=== PATIENT | female | born 1970 | race Caucasian/White ===

== ENCOUNTER → 2019-05-15 | Outpatient (CLI) | payer OTHER ==
--- NOTE | 2019-05-15 11:35 | Diagnostic Imaging Report ---
Indication: Routine screening. Comparison is made with prior mammogram from 02/18/2015. 2-D and 3-D bilateral screening mammography was performed with CAD. Bilateral subpectoral breast implants again noted. Implant contours are smooth. Scattered fibroglandular tissue is seen bilaterally. No mass or malignant-appearing microcalcifications are identified. The axillae are unremarkable. IMPRESSION: BI-RADS Category 2 No mammographic features suspicious for malignancy are identified. ACR BI-RADS Category 2: Benign findings. Result letter will be mailed to the patient. Note: At least 10% of breast cancer is not imaged by mammography. Dictated by: Dictated on workstation # [id number]
== END ==
LOC: RAD 09:52
PROVIDERS: ATTEND Obstetrics & Gynecology
DX: Z12.31 Encounter for screening mammogram for malignant neoplasm of breast (principal)
CPT/HCPCS: 77067

== ENCOUNTER 2020-01-09 20:52 | Emergency (ER) | payer OTHER ==
[~2020-01-09] VITALS: Ht 177 cm; Wt 72.0 kg
--- OUTSIDE RECORDS SUMMARY | 2020-01-09 20:58 | XMS REPORT ---
Author Author Mary ISABEL Organization [facility] Address [address] [place] [address] Phone Unavailable Care Team Providers Care Balloon Dipper Name Role Phone RAVEN ISABEL Unavailable Unavailable PROBLEMS Type Condition ICD9-CM Code [id number] Code Onset Dates Condition S tatus SNOMED Code Problem Migraine without status migr ainosus, not intractable, unspecified migraine type G43.909 Active 36831959 Problem Stress F43.9 Active 02539301 Problem Migraines G43.909 Active 39237680 Problem Acute seasonal allergic rhinitis, unspecified trigger J30.2 Active 936736399 Problem Chronic maxillary sinusitis J32.0 Ac tive 82580166 ALLERGIES No Information ENCOUNTERS Encounter Location Date Diagnosis [facility] [address] [address] May, Encounter for immunization Z 23 [place] [id number] [address] Mar, Migraine without status migr ainosus, not intractable, unspecified migraine type G43.909 and Migraines G43.909 [facility] [address] [address] Jan, Migraine without status migr ainosus, not intractable, unspecified migraine type G43.909 [facility] [address] [address] December, Rash R21 [facility] [address] [address] Oct, Migraines G43.909 ; Chronic maxillary sinusitis J32.0 ; Stress F43.9 ; Screening cholesterol level Z13.220 and Screening for diabetes mellitus Z13.1 [place] [address] [place] [address] 19 Oct, 2017 Migraines G43.909 [facility] [address] [address] 07 Sep, 2017 Migraines G43.909 [facility] [address] [place] [id number] [place] [address] 08 Jul, 2017 Viral gastroenteritis A08.4 and Acute seasonal allergic rhinitis, unspecified trigger J30.2 [facility] [address] [address] Mar, Migraines G43.909 [place] [address] [address] Jan, [place] [address] [address] Jan, Migraines G43.909 [facility] [address] [address] 08 Oct, 2016 Migraines G43.909 and Enviro nmental allergies Z91.09 [place] [address] [address] 17 Sep, 2016 Wellness examination Z00.00 [place] [address] [address] 14 Sep, 2016 Lumbago with sciatica, left side M54.42 ; Other chronic pain G89.29 and Chronic maxillary sinusitis J32.0 [place] [address] [address] 30 Jul, 2016 Migraines G43.909 ; Environm ental allergies Z91.09 ; Weight gain R63.5 and Wellness examination Z00.00 [place] [address] [place] [id number] [place] [address] 27 May, 2016 Environmental allergies Z91. 09 [place] [address] [place] [address] May, [facility] [address] [facility] [id number] [address] [place] [address] Mar, Environmental allergies Z91. 09 ; Migraines G43.909 and Weight gain R63.5 [facility] [address] [facility] [id number] [address] [place] [address] Mar, Other headache syndrome G44. 89 [facility] [address] [facility] [id number] [address] [place] [address] Jan, Migraine syndrome G43.909 [place] [address] [place] [id number] [place] [address] Jan, Migraines G43.909 ; Environm ental allergies Z91.09 and Weight gain R63.5 [facility] [address] [address] Jan, [facility] [address] [place] [id number] [place] [address] December, Migraines G43.909 [place] [address] [address] Nov, Migraines G43.909 [facility] [address] [place] [id number] [place] [address] Aug, Migraines G43.909 ; Weight g ain R63.5 and Sinusitis J32.9 [facility] [address] [place] [id number] [address] [place] [address] Jun, [facility] [address] [place] [id number] [place] [address] Jun, Weight gain R63.5 ; Migraine s G43.909 ; Nausea R11.0 and Environmental allergies Z91.09 [facility] [address] [place] [id number] [place] [address] May, [facility] [address] [id number] [address] [place] [address] May, [facility] [address] [id number] [address] [place] [address] Jun, [facility] [address] [id number] [address] [place] [address] Jun, [facility] [address] [id number] [address] [place] [address] Nov, [facility] [address] [id number] [address] [place] [address] Nov, [facility] [address] [id number] [address] [place] [address] May, [facility] [address] [id number] [address] [place] [address] May, [facility] [address] [facility] [id number] [address] [place] [address] Oct, IMMUNIZATIONS Vaccine Route Administration Date Status FLULAVAL QUAD 0.5ML (6 MO & UP) 2017 IM Intramuscular May 07 18 Administered SOCIAL HISTORY Never Assessed REASON FOR VISIT Flu Shot PLAN OF CARE VITAL SIGNS MEDICATIONS Unknown Medications RESULTS No Results PROCEDURES Procedure Date Ordered Result Body Site FLULAVAL QUAD 0.5ML (6 MO AND UP) 2017May 07, 2018 SINGLE IMMUNIZATION ADMIN May 07, 2018 INSTRUCTIONS MEDICATIONS ADMINISTERED No Known Medications MEDICAL (GENERAL) HISTORY Type Description Date Medical History Sinusitis Medical History Migraines Surgical History Surgical History breast augmentation 2009 Surgical History hip surgery as child Hospitalization History Childbirth
--- OUTSIDE RECORDS SUMMARY | 2020-01-09 20:58 | XMS REPORT ---
Author Author Mary BANKS Organization [facility] Address [address] [place] [address] Care Team Providers Care Loader Helper Sorting Yard Name Role Phone ESME BANKS Unavailable PROBLEMS Type Condition ICD9-CM Code SWE20-DJ Code Onset Dates Condition S tatus SNOMED Code Problem Migraine without status migr ainosus, not intractable, unspecified migraine type G43.909 Active 98741492 Problem Stress F43.9 Active 04397714 Problem Migraines G43.909 Active 67571108 Problem Acute seasonal allergic rhinitis, unspecified trigger J30.2 Active 268729919 Problem Chronic maxillary sinusitis J32.0 Ac tive 86530721 ALLERGIES No Information ENCOUNTERS Encounter Location Date Diagnosis [facility] [address] [address] Mar, Migraine without status migr ainosus, not intractable, unspecified migraine type G43.909 and Migraines G43.909 [facility] [address] [address] Jan, Migraine without status migr ainosus, not intractable, unspecified migraine type G43.909 [facility] [address] [place] [id number] [place] [address] December, Rash R21 [facility] [address] [place] [id number] [place] [address] Oct, Migraines G43.909 ; Chronic maxillary sinusitis J32.0 ; Stress F43.9 ; Screening cholesterol level Z13.220 and Screening for diabetes mellitus Z13.1 [facility] [address] [place] [id number] [place] [address] Oct, Migraines G43.909 [facility] [address] [address] 07 Sep, 2017 Migraines G43.909 [facility] [address] [address] 08 Jul, 2017 Viral gastroenteritis A08.4 and Acute seasonal allergic rhinitis, unspecified trigger J30.2 [place] [address] [address] Mar, Migraines G43.909 [place] [address] [address] Jan, [place] [address] [address] Jan, Migraines G43.909 [place] [address] [address] Oct, Migraines G43.909 and Enviro nmental allergies Z91.09 [place] [address] [address] 17 Sep, 2016 Wellness examination Z00.00 [place] [address] [address] 14 Sep, 2016 Lumbago with sciatica, left side M54.42 ; Other chronic pain G89.29 and Chronic maxillary sinusitis J32.0 [place] [address] [address] Jul, Migraines G43.909 ; Environm ental allergies Z91.09 ; Weight gain R63.5 and Wellness examination Z00.00 [place] [address] [address] May, Environmental allergies Z91. 09 [place] [address] [address] May, [place] [address] [address] Mar, Environmental allergies Z91. 09 ; Migraines G43.909 and Weight gain R63.5 [facility] [address] [facility] [id number] [address] [place] [address] Mar, Other headache syndrome G44. 89 [facility] [address] [facility] [id number] [address] [place] [address] Jan, Migraine syndrome G43.909 [facility] [address] [facility] [id number] [address] [place] [address] Jan, Migraines G43.909 ; Environm ental allergies Z91.09 and Weight gain R63.5 [facility] [address] [facility] [id number] [address] [place] [address] Jan, [facility] [address] [place] [id number] [place] [address] December, Migraines G43.909 [facility] [address] [facility] [id number] [address] [place] [address] Nov, Migraines G43.909 [facility] [address] [facility] [id number] [address] [place] [address] Aug, Migraines G43.909 ; Weight g ain R63.5 and Sinusitis J32.9 [place] [address] [place] [id number] [place] [address] Jun, [facility] [address] [place] [id number] [place] [address] Jun, Weight gain R63.5 ; Migraine s G43.909 ; Nausea R11.0 and Environmental allergies Z91.09 [facility] [address] [facility] [id number] [address] [place] [address] May, [facility] [address] [place] [id number] [place] [address] May, [facility] [address] [place] [address] Jun, [facility] [address] [id number] [address] [place] [address] Jun, [facility] [address] [id number] [address] [place] [address] Nov, [facility] [address] [id number] [address] [place] [phone] Nov, [facility] [address] [id number] [address] [place] [address] May, [facility] [address] [facility] [id number] [address] [place] [address] May, [facility] [address] [facility] [id number] [address] [place] [address] Oct, IMMUNIZATIONS Vaccine Route Administration Date Status SOLUMEDROL (UP TO 125 MG) IM Intramuscular December 25, 2017 Admin istered SOCIAL HISTORY Never Assessed REASON FOR VISIT Rash Pt c/o rash on legs which started on Saturday [place] PLAN OF CARE VITAL SIGNS Height 69 in 2017-12-25 Weight 158 lbs 2017-12-25 Temperature 98.1 degrees Fahrenheit 2017-12-25 Heart Rate 80 bpm 2017-12-25 Respiratory Rate 16 2017-12-25 BMI 23.33 kg/m2 2017-12-25 Blood pressure systolic 120 mmHg 2017-12-25 Blood pressure diastolic 78 mmHg 2017-12-25 MEDICATIONS Medication Instructions Dosage Frequency Start Date End Date Duration S tatus HydrOXYzine HCl 25 MG Orally 4 times a day 1 tablet as needed 6h December, Active ZyrTEC 10 mg Orally Once a day 1 tablet 24h Apr, 90 days Unknown Treximet 85-500 MG Orally Once a day TAKE ONE TABLET BY M OUTH ONCE DAILY NEEDED 24h 18 Unknown PredniSONE 20 mg Orally Once a day 2 tablets 24h December, December, 05 days Active Zofran ODT 4 MG Orally every 8 hrs 1 tablet on the tongue and al low to dissolve 8h Jul, 5 days Unknown RESULTS No Results PROCEDURES Procedure Date Ordered Result Body Site SOLUMEDROL (UP TO 125 MG) December 25, 2017 THER/PROPH/DIAG INJ, SC/IM December 25, 2017 INSTRUCTIONS MEDICATIONS ADMINISTERED No Known Medications MEDICAL (GENERAL) HISTORY Type Description Date Medical History Sinusitis Medical History Migraines Surgical History Surgical History breast augmentation 2009 Surgical History hip surgery as child Hospitalization History Childbirth
--- OUTSIDE RECORDS SUMMARY | 2020-01-09 20:58 | XMS REPORT ---
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 [employer] [facility] Rating [facility] Address [address] [address] Care Team Providers Care Door Trimmer Name Role Phone SAL CESARE Unavailable Unavailable RAJCEDRICK MAGGY Unavailable Unavailable CESAR, SIGRID Unavailable CESAR, SIGRID Unavailable CESAR, SIGRID Unavailable CESAR, SIGRID Unavailable JUMA MUNOZ Unavailable ESME BANKS Unavailable KELSEY POWERS Unavailable BON DE LEON Unavailable ESME BANKS Unavailable JUMA MUNOZ Unavailable MANDY DE LEONELE Unavailable RAVEN ISABEL Unavailable Unavailable BON Cheng Unavailable Unavailable Migration, Doctor Unavailable Unavailable ESME BANKS DIETETIC AIDE Unavailable Unavailable PCP, TRANSITION Unavailable Unavailable RENÉ WHITTEN, GERHARD Dickerson Unavailable Unavailable Unavailable Unavailable Unavailable Unavailable Unavailable Unavailable Unavailable Unavailable Allergies The data below is from unstructured sourcesNo Known Allergies No Known Allergies No Known Allergies No Known Allergies No Known Allergies No Known Allergies No Known Allergies No Known Allergies No Known Allergies No Known Allergies No Known Allergies Unknown Allergies Unknown Allergies No Information No Information No Information No Information No Information No Information No Information No Information No Information No Information No Information No Information Medications Medication Ingredient Drug Dose Dates Status Sig Sig Care Class(es) (Normalized) (Original) Provid er hydrOXYzine hydrOXYzine Antihistami 25 mg 12-26-19 Active no HydrOXYzine no hydrochlori Translation ne 18 information HCl 25 MG name de 25 mg s: [ Orally 4 oral tablet HydrOXYzine times a day (2 HCl 25 MG] 1 tablet as sources.) needed 6h December, Active Problems Active Problems Problem Normalized Date Last Normalized Normalized Provider Fa cility Classification Problem(s) Recorded Problem Problem Sta tus Duration Immunizations Encounter for Episodic Active RAVEN ISABEL Community and screening immunization [address] [facility] for infectious Translations: of [place] disease (2 [ - Encounter [place] ([address]) sources.) for immunization Z23] Other nervous Other chronic Chronic Active [facility] [facility] disorders (5 Translations: of [place] sources.) [ - Other [place] ([address]71) chronic pain G89.29, - Other chronic pain G89.29] Other upper Seasonal Chronic Active ESME BANKS Communit y respiratory allergic [address] [facility] disease (5 rhinitis of [place] sources.) Translations: [place] ([address]791) [ Acute seasonal allergic rhinitis, unspecified trigger, Acute seasonal allergic rhinitis, unspecified trigger] Viral Viral wart, Episodic Active Doctor Community infection (1 unspecified [facility] source.) Translations: of [place] [ - Viral [place] ([address]954) warts, unspecified type B07.9] Past or Other Problems Problem Normalized Date Last Normalized Normalized Provider Fa cility Classification Problem(s) Recorded Problem Problem Sta tus Duration Other upper Acute Episodic Completed Doctor Community respiratory recurrent [facility] infections (6 maxillary of [place] sources.) sinusitis [place] ([address]18) Translations: [ - Acute recurrent maxillary sinusitis J01.01, - Acute recurrent ethmoidal sinusitis J01.21, - Acute sinusitis J01.90] Procedures Procedure Normalized Procedure Procedure Result Performer Facility Date 01-04-2018 Ketorolac tromethamine no information no name [facility] inj [facility] (79221) 12-25-2017 Methylprednisolone no information no name [facility] injection [facility] (64540) 01-04-2018 Therapeutic no information no name [facility] ealth prophylactic/dx Center [facility] injection subq/im [place] (21755) 12-25-2017 Therapeutic no information no name [facility] ealt prophylactic/dx [facility] injection subq/im [place] (61472) Immunizations Normalized Immunization Date Notes Care Provider Facili ty Immunization influenza, 05-07-2018 no information RAVEN ISABEL [address] [facility] injectable, [facility] quadrivalent, [place] (60555) preservative free influenza, 05-24-2017 no information no name Not Availab le injectable, (00481) quadrivalent, preservative free influenza, seasonal, 05-27-2019 no information no name [facility] injectable [facility] (09957) influenza, seasonal, 05-07-2018 - no information RAVEN ISABEL [address]24[address] [facility] injectable 05-07-2018 [facility] Translations: [ [place] (24934) SINGLE IMMUNIZATION ADMIN] SOLUMEDROL (UP TO 12-25-2017 no information ESME BANKS [address] [facility] 125 MG) [facility] (47210) SOLUMEDROL (UP TO 12-25-2017 no information no name [facility] MG) [facility] ([address]886) TORADOL (IM) 60 01-04-2018 no information JUMA MUNOZ [facility] MG/2ML (UP TO 15 MG) [address] [facility] (92385) Results Test Name Value Interpretation Reference Range Date Time Fa cility (Normalized) (Normalized) (Medline Reference) other on 2016-09-22 Albumin/Globulin 2.0 {ratio} (no code) 1 - 2.5 {ratio} 7 Not Available [Mass ratio] 09:33-0500 (90918) Cholesterol in 14 mg/dL (no code) 09-22-2016 Not Availab le VLDL [Mass/Vol] 09:33-0500 (71530) Erythrocyte 13.2 % (no code) 11.6 - 14.6 % 09-22-2016 Not Av ailable distribution 08:290500 (14104) width (RBC) [Ratio] Globulin (S) 2.0 g/dL (no code) 2 - 3.5 g/dL 09-22-2016 Not Av ailable [Mass/Vol] 09:33-0500 (32091) Immature 0.0 10*3/uL (no code) 0 - 0.2 10*3/uL 09-22-2016 Not Available granulocytes 08:290500 (98948) (Bld) [#/Vol] Immature 0 % (no code) 0 - 0.5 % 09-22-2016 Not Availabl e granulocytes/100 08: (54972) WBC (Bld) MCHC (RBC) 33.1 g/dL (no code) 32 - 36 g/dL 09-22-2016 Not Avai lable [Mass/Vol] 08: (02818) metabolic panel on 2016-09-22 Albumin 4.0 g/dL (no code) 3.4 - 5.4 g/dL 09-22-2016 Not Pascale ilable [Mass/Vol] 09: (11512) ALP [Catalytic 39 U/L (no code) 44 - 147 U/L 09-22-2016 Not Available activity/Vol] 09: (11576) ALT [Catalytic 37 U/L (H) 4 - 40 U/L 09-22-2016 Not Av ailable activity/Vol] 09: (52759) AST [Catalytic 25 U/L (no code) 10 - 34 U/L 09-22-2016 Not A vailable activity/Vol] 09: (25460) Bilirubin 0.5 mg/dL (no code) 0.1 - 1.2 mg/dL 09-22-2016 Not Av ailable [Mass/Vol] 09: (23911) Calcium 9.2 mg/dL (no code) 8.5 - 10.2 mg/dL 09-22-2016 Not A vailable [Mass/Vol] 09: (85892) Chloride 104 mmol/L (no code) 95 - 106 mmol/L 09-22-2016 Not A vailable [Moles/Vol] 09: (97592) CO2 [Moles/Vol] 24 mmol/L (no code) 23 - 29 mmol/L 09-22-2016 N ot Available 09: (99245) Creatinine 0.83 mg/dL (no code) 09-22-2016 Not Available [Mass/Vol] 09: (95633) GFR/1.73 sq M 98 (no code) 90 - 120 09-22-2016 Not Avai lable predicted among mL/min/{1.73_m2} mL/min/{1.73_m2} 09:33-0500 (46586) blacks MDRD (S/P/Bld) [Vol rate/Area] GFR/1.73 sq M 85 (no code) 90 - 120 09-22-2016 Not Avai lable predicted among mL/min/{1.73_m2} mL/min/{1.73_m2} 09:330500 (76899) non-blacks MDRD (S/P/Bld) [Vol rate/Area] Glucose 81 mg/dL (no code) 60 - 125 mg/dL 09-22-2016 Not Pascale ilable [Mass/Vol] 09:330500 (14388) Potassium 4.4 mmol/L (no code) 3.7 - 5.2 mmol/L 09-22-2016 Not Available [Moles/Vol] 09:330500 (93618) Protein 6.0 g/dL (no code) 6.4 - 8.3 g/dL 09-22-2016 Not Pascale ilable [Mass/Vol] 09:330500 (08580) Sodium 140 mmol/L (no code) 135 - 145 mmol/L 09-22-2016 Not Available [Moles/Vol] 09:330500 (59882) Urea nitrogen 10 mg/dL (no code) 7 - 20 mg/dL 09-22-2016 Not A vailable [Mass/Vol] 09:330500 (83552) Urea 12 mg/mg (no code) 6 - 22 mg/mg 09-22-2016 Not Avail able nitrogen/Creatin 09:330500 (53752) ine [Mass ratio] hematology on 2016-09-22 Basophils (Bld) 0.0 10*3/uL (no code) 0 - 0.3 10*3/uL 09-22-2016 Not Available [#/Vol] 08:290500 (48731) Basophils/100 1 % (no code) 0.5 - 1 % 09-22-2016 Not Avai lable WBC (Bld) 08:0500 (54136) Eosinophils 0.0 10*3/uL (no code) 0.05 - 0.5 09-22-2016 Not Pascale ilable (Bld) [#/Vol] 10*3/uL 08:0500 (15229) Eosinophils/100 1 % (no code) 1 - 4 % 09-22-2016 Not Av ailable WBC (Bld) 08: (95370) Hematocrit (Bld) 39.3 % (no code) 36.1 - 50.3 % 09-22-2016 N ot Available [Volume 08: (45276) fraction] Hemoglobin (Bld) 13.0 g/dL (no code) 12.1 - 17.2 g/dL 09-22-2016 Not Available [Mass/Vol] 08: (70547) Lymphocytes 1.1 10*3/uL (no code) 0.9 - 2.9 09-22-2016 Not Avai lable (Bld) [#/Vol] 10*3/uL 08: (14787) Lymphocytes/100 26 % (no code) 20 - 40 % 09-22-2016 Not Av ailable WBC (Bld) 08: (04055) MCH (RBC) 32.8 pg (no code) 27 - 31 pg 09-22-2016 Not Availab le [Entitic mass] 08: (26118) MCV (RBC) 99 fL (H) 80 - 100 fL 09-22-2016 Not Availa ble [Entitic vol] 08: (41830) Monocytes (Bld) 0.4 10*3/uL (no code) 0.3 - 0.9 09-22-2016 Not Available [#/Vol] 10*3/uL 08: (49476) Monocytes/100 9 % (no code) 2 - 8 % 09-22-2016 Not Avai lable WBC (Bld) 08: (67425) Neutrophils 2.8 10*3/uL (no code) 1.7 - 7 10*3/uL 09-22-2016 No t Available (Bld) [#/Vol] 08:0500 (75347) Neutrophils/100 63 % (no code) 40 - 60 % 09-22-2016 Not Av ailable WBC (Bld) 08:0500 (22283) Platelets (Bld) 217 10*3/uL (no code) 150 - 450 09-22-2016 Not Available [#/Vol] 10*3/uL 08: (07525) RBC (Bld) 3.96 10*6/uL (no code) 4.2 - 6.1 09-22-2016 Not Avail able [#/Vol] 10*6/uL 08: (82361) WBC (Bld) 4.4 10*3/uL (no code) 3.5 - 10.5 09-22-2016 Not Avail able [#/Vol] 10*3/uL 08: (43796) cardiac on 2016-09-22 Cholesterol 186 mg/dL (no code) 180 - 200 mg/dL 09-22-2016 Not Available [Mass/Vol] 09:330500 (02725) Cholesterol in 82 mg/dL (no code) 09-22-2016 Not Availab le HDL [Mass/Vol] 09:330500 (62946) Cholesterol in 90 mg/dL (no code) 0 - 100 mg/dL 09-22-2016 Not Available LDL [Mass/Vol] 09:330500 (33090) Triglyceride 70 mg/dL (no code) 0 - 150 mg/dL 09-22-2016 Not A vailable [Mass/Vol] 09:330500 (42420) Vital Signs Vital Sign Value Interpretation Reference Date Time Care Prov ider Facility (Normalized) (Normalized) Range BMI (Body Mass 23.06 kg/m2 (no code) 15 - 25 kg/m2 01-04-2018 ANIKET CONLEY Community Index) 11:30-0400 [facility] [address] [facility] (42002) BMI (Body Mass 23.33 kg/m2 (no code) 15 - 25 kg/m2 12-25-2017 Devon BANKS Community Index) 19:00-[address] [place] [address] (68948) Body 97.3 [degF] (no code) 97.8 - 99.0 01-04-2018 JUMA Community Temperature [degF] 11:30-0400 [facility] [address] [facility] (20745) Body 98.1 [degF] (no code) 97.8 - 99.0 12-25-2017 ESME ALSTON Community Temperature [degF] 19:00-[address] [place] [address] (76983) Height 175.26 cm (no code) cm 01-04-2018 JUMA Yo nity 11:30-0400 [place] [phone] [facility] (96[address]) Height 175.26 cm (no code) cm 12-25-2017 [facility] 19:000400 [address] [place] [address] (25950) Weight 70.85 kg (no code) kg 01-04-2018 JUMA Garcia ity 11:30-0400 [place] [phone] [facility] (44407) Weight 71.67 kg (no code) kg 12-25-2017 ESME BANKS Co mmunity 19:000400 [address] [place] [address] (30998) Interventions No Information Plan of Treatment The data below is from unstructured sources Activity Details Follow Up 3 Months Reason:migraines Activity Details Follow Up 2 Weeks, prn Reason: Activity Details Follow Up prn Reason: Activity Details Follow Up prn, 3 Months Reason: Goals No Information Social History No Information Functional Status No Information Mental Status No Information Encounters Encounter Normalized Encounter Encounter Diagnosis Care Provi mayo Organization Date Type 05-07-2018 (outreach) Outreach Encounter for RAVEN BHARTIMARQUISBhupinder (n o [facility] Visit immunization phone) MARIA DEL CARMENPERNELL (no phone) Gabriele (no phone) [facility] Migraine, unspecified, CARLIN JEFF (no [facility] not intractable, phone) CARE (no phon e) without status migrainosus 12-14-2018 [facility] Acute recurrent KELSEY BURNS ( no [facility] ethmoidal sinusitis phone) CARE (no p sahunna) 08-10-2018 [facility] Acute sinusitis, KELSEY BURNS (no [facility] unspecified phone) CARE (no phone) 03-30-2019 [facility] Viral wartKELSEY (no [facility] unspecified phone) (no phone) 02-16-2019 [facility] Acute recurrent ESME BANKS (no [facility] maxillary sinusitis phone) (no phone) 01-04-2018 Patient encounter no information no name no or ganization name 12-25-2017 Patient encounter no information no name no or ganization name 11-01-2017 Patient encounter no information no name no or ganization name 10-21-2017 Patient encounter no information no name no or ganization name 02-18-2015 Patient encounter no information no name no or ganization name Patient encounter no information no name no organizat ion name 05-15-2019 Patient encounter no information no name no or ganization name procedure 05-15-2019 Patient encounter no information no name no or ganization name procedure 04-24-2019 Patient encounter no information no name no or ganization name procedure 04-24-2019 Patient encounter no information no name no or ganization name procedure 04-12-2019 Patient encounter no information no name no or ganization name procedure 02-16-2019 Patient encounter no information no name no or ganization name procedure 12-14-2018 Patient encounter no information no name no or ganization name procedure 08-10-2018 Patient encounter no information no name no or ganization name procedure 04-03-2019 Telephone encounter no information KELSEY BURNS (n o [facility] phone) (no phone) 02-23-2019 Telephone encounter Acute recurrent ESME BANKS (n o [facility] maxillary sinusitis phone) (no phone) 03-13-2018 Telephone encounter Migraine, unspecified, BON DE LEON (no [facility] not intractable, phone) BON zzCAREY (no phone) without status (no phone) BON migrainosus zzCAREY (no phone) no information Encounter for general no name no organ ization name adult medical examination without abnormal findings Medical Equipment No Information Payers No Information Summary Purpose eClinicalWorks SubmissioneClinicalWorks SubmissioneClinicalWorks SubmissioneClinicalWorks SubmissioneClinicalWorks SubmissioneClinicalWorks SubmissioneClinicalWorks Submission Additional Source Comments This clinical document has been generated using [employer] software that has been certified by the Office of the National Coordinator for Health Information Technology (ONC 15.99.04.3023.Diam.31.00.0.431262) and the National Committee for Environmental Health Nurse (NCQA, as an eMeasure certified technology). FOR RECORDS PERTAINING TO PATIENTS WHO ARE OR HAVE BEEN ENROLLED IN A CHEMICAL D EPENDENCY/SUBSTANCE ABUSE PROGRAM, SOME INFORMATION MAY BE OMITTED. This clinica l summary was aggregated from multiple sources. Caution should be exercised in using it in the provision of clinical care. This summary normalizes information from multiple sources, and as a consequence, information in this document may ma terially change the coding, format and clinical context of patient data. In viola tion, data may be omitted in some cases. CLINICAL DECISIONS SHOULD BE BASED ON T HE PRIMARY CLINICAL RECORDS. [employer]. provides no warranty or guara ntee of the accuracy or completeness of information in this document.The followi ng information is based on time limited clinical information UNRECOGNIZED CONTENT PROVIDED BELOW FOR UNRECOGNIZED SECTION MEDICAL (GENERAL) HISTORY Type Description Date Medical History Sinusitis Medical History Migraines Surgical History Surgical History breast augmentation 2009 Surgical History hip surgery as child Hospitalization History Childbirth UNRECOGNIZED CONTENT PROVIDED BELOW FOR UNRECOGNIZED SECTION REASON FOR VISIT Refill requestFlu Shot
--- OUTSIDE RECORDS SUMMARY | 2020-01-09 20:58 | XMS REPORT ---
Author Author Mary MUNOZ [facility] Address [address] [place] [address] Care Team Providers Care Surgical Garment Assembly Supervisor Name Role Phone TAMMY JUMA Unavailable PROBLEMS Type Condition ICD9-CM Code YRQ09-SF Code Onset Dates Condition S tatus SNOMED Code Problem Migraine without status migr ainosus, not intractable, unspecified migraine type G43.909 Active 66260425 Problem Stress F43.9 Active 31885737 Problem Migraines G43.909 Active 09364528 Problem Acute seasonal allergic rhinitis, unspecified trigger J30.2 Active 568594194 Problem Chronic maxillary sinusitis J32.0 Ac tive 01245771 ALLERGIES Substance Reaction Event Type Date Status Penicillamine Unknown Drug Allergy Jan, Active ENCOUNTERS Encounter Location Date Diagnosis [facility] [address] [address] Mar, Migraine without status migr ainosus, not intractable, unspecified migraine type G43.909 and Migraines G43.909 [facility] [address] [address] Jan, Migraine without status migr ainosus, not intractable, unspecified migraine type G43.909 [facility] [address] [place] [id number] [address] [place] [phone] December, Rash R21 [facility] [address] [address] Oct, Migraines G43.909 ; Chronic maxillary sinusitis J32.0 ; Stress F43.9 ; Screening cholesterol level Z13.220 and Screening for diabetes mellitus Z13.1 [facility] [address] [address] Oct, Migraines G43.909 [facility] [address] [address] 07 Sep, 2017 Migraines G43.909 [facility] [address] [address] 08 Jul, 2017 Viral gastroenteritis A08.4 and Acute seasonal allergic rhinitis, unspecified trigger J30.2 [place] [address] [address] Mar, Migraines G43.909 [place] [address] [address] Jan, [place] [address] [address] Jan, Migraines G43.909 [place] [address] [address] Oct, Migraines G43.909 and Enviro nmental allergies Z91.09 [place] [address] [address] 17 Sep, 2016 Wellness examination Z00.00 [place] [address] [address] 14 Sep, 2016 Lumbago with sciatica, left side M54.42 ; Other chronic pain G89.29 and Chronic maxillary sinusitis J32.0 [place] [address] [address] Jul, Migraines G43.909 ; Environm ental allergies Z91.09 ; Weight gain R63.5 and Wellness examination Z00.00 [place] [address] [address] May, Environmental allergies Z91. 09 [place] [address] [address] May, [facility] [address] [id number] [address] [place] [phone] Mar, Environmental allergies Z91. 09 ; Migraines G43.909 and Weight gain R63.5 [facility] [address] [id number] [address] [place] [phone] Mar, Other headache syndrome G44. 89 [facility] [address] [facility] [id number] [address] [place] [address] Jan, Migraine syndrome G43.909 [facility] [address] [facility] [id number] [address] [place] [address] Jan, Migraines G43.909 ; Environm ental allergies Z91.09 and Weight gain R63.5 [facility] [address] [facility] [id number] [address] [place] [address] Jan, [facility] [address] [facility] [id number] [address] [place] [phone] December, Migraines G43.909 [facility] [address] [facility] [id number] [address] [place] [address] Nov, Migraines G43.909 [facility] [address] [facility] [id number] [address] [place] [address] Aug, Migraines G43.909 ; Weight g ain R63.5 and Sinusitis J32.9 [facility] [address] [facility] [id number] [address] [place] [phone] Jun, [facility] [address] [facility] [id number] [address] [place] [phone] Jun, Weight gain R63.5 ; Migraine s G43.909 ; Nausea R11.0 and Environmental allergies Z91.09 [facility] [address] [facility] [id number] [address] [place] [phone] May, [facility] [address] [facility] [id number] [address] [place] [phone] May, [facility] [address] [facility] [id number] [address] [place] [phone] Jun, [facility] [address] [id number] [address] [place] [phone] Jun, [facility] [address] [facility] [id number] [address] [place] [phone] Nov, [facility] [address] [id number] [address] [place] [phone] Nov, [facility] [address] [facility] [id number] [address] [place] [phone] May, [facility] [address] [facility] [id number] [address] [place] [phone] May, [facility] [address] [facility] [id number] [address] [place] [phone] Oct, IMMUNIZATIONS Vaccine Route Administration Date Status TORADOL (IM) 60 MG/2ML (UP TO 15 MG) IM Intramuscular January 04 018 Administered SOCIAL HISTORY Never Assessed REASON FOR VISIT Migraine started yesterday JStrasserRN PLAN OF CARE Activity Details Follow Up prn Reason: VITAL SIGNS Height 69 in 2018-01-04 Weight 156.2 lbs 2018-01-04 Temperature 97.3 degrees Fahrenheit 2018-01-04 Heart Rate 60 bpm 2018-01-04 Respiratory Rate 18 2018-01-04 BMI 23.06 kg/m2 2018-01-04 Blood pressure systolic 110 mmHg 2018-01-04 Blood pressure diastolic 70 mmHg 2018-01-04 MEDICATIONS Medication Instructions Dosage Frequency Start Date End Date Duration S tatus Treximet 85-500 MG Orally Once a day TAKE ONE TABLET BY M OUTH ONCE DAILY NEEDED 24h 18 Active Zofran ODT 4 MG Orally every 8 hrs 1 tablet on the tongue and al low to dissolve 8h Jul, 10 days Active ZyrTEC 10 mg Orally Once a day 1 tablet 24h 26 Apr, 2018 90 days Not-Taking HydrOXYzine HCl 25 MG Orally 4 times a day 1 tablet as needed 6h December, Active RESULTS No Results PROCEDURES Procedure Date Ordered Result Body Site TORADOL (IM) 60 MG/2ML (UP TO 15 MG) January 04, 2018 THER/PROPH/DIAG INJ, SC/IM January 04, 2018 INSTRUCTIONS MEDICATIONS ADMINISTERED No Known Medications MEDICAL (GENERAL) HISTORY Type Description Date Medical History Sinusitis Medical History Migraines Surgical History Surgical History breast augmentation 2009 Surgical History hip surgery as child Hospitalization History Childbirth
--- OUTSIDE RECORDS SUMMARY | 2020-01-09 20:58 | XMS REPORT ---
Author Author Mary Boone Doctor Organization [facility] Address Unknown Phone Unavailable Care Team Providers Care Metal Bumper Name Role Phone Migration, Doctor Unavailable Unavailable PROBLEMS Type Condition ICD9-CM Code [id number] Code Onset Dates Condition S tatus SNOMED Code Problem Stress F43.9 Active 27313345 Problem Migraine without status migr ainosus, not intractable, unspecified migraine type G43.909 Active 81903867 Problem Migraines G43.909 Active 06121795 Problem Chronic maxillary sinusitis J32.0 Ac tive 50597063 Problem Acute seasonal allergic rhinitis, unspecified trigger J30.2 Active 516882646 ALLERGIES No Information ENCOUNTERS Encounter Location Date Diagnosis [facility] WALK IN [facility] [address] [place] [id number] [address] [place] [address] Apr, Migraine without status migr ainosus, not intractable, unspecified migraine type G43.909 [facility] [address] [place] [address] [id number] [address] [place] [address] Mar, [facility] [address] [place] [id number] [address] [place] [address] Mar, Viral warts, unspecified typ e B07.9 and Migraine without status migrainosus, not intractable, unspecified migraine type G43.909 [facility] [address] [place] [id number] [address] [place] [address] Feb, Acute recurrent maxillary si nusitis J01.01 [facility] [address] [facility] [id number] [address] [place] [address] Feb, [facility] [address] [place] [id number] [address] [place] [address] Feb, Acute recurrent maxillary si nusitis J01.01 [facility] IN [facility] [address] [place] [place] [id number] [address] [place] [address] December, Acute recurrent ethmoidal si nusitis J01.21 and Migraines G43.909 [facility] [address] [address] Aug, Acute sinusitis J01.90 and M igraine G43.909 [place] [address] [address] May, Encounter for immunization Z 23 [place] [address] [address] Mar, Migraine without status migr ainosus, not intractable, unspecified migraine type G43.909 and Migraines G43.909 [facility] [place] [address] [address] Jan, Migraine without status migr ainosus, not intractable, unspecified migraine type G43.[address] [facility] WALK IN [place] [address] [address] December, Rash R21 [place] [address] [address] Oct, Migraines G43.909 ; Chronic maxillary sinusitis J32.0 ; Stress F43.9 ; Screening cholesterol level Z13.220 and Screening for diabetes mellitus Z13.1 [place] [address] [address] Oct, Migraines G43.909 [facility] [address] [address] Sep, Migraines G43.909 [facility] W[facility] IN [address] [address] Jul, Viral gastroenteritis A08.4 and Acute seasonal allergic rhinitis, unspecified trigger J30.2 [place] [address] [address] Mar, Migraines G43.909 [facility] [address] [facility] [id number] [address] [place] [address] Jan, [facility] [address] [facility] [id number] [address] [place] [address] Jan, Migraines G43.909 [place] [address] [facility] [id number] [address] [place] [address] Oct, Migraines G43.909 and Enviro nmental allergies Z91.09 [facility] [address] [facility] [id number] [address] [place] [address] 17 Sep, 2016 Wellness examination Z00.00 [place] [address] [place] [id number] [place] [address] 14 Sep, 2016 Lumbago with sciatica, left side M54.42 ; Other chronic pain G89.29 and Chronic maxillary sinusitis J32.0 [place] [address] [place] [id number] [place] [address] Jul, Migraines G43.909 ; Environm ental allergies Z91.09 ; Weight gain R63.5 and Wellness examination Z00.00 [place] [address] [place] [id number] [place] [address] May, Environmental allergies Z91. 09 [place] [address] [place] [id number] [place] [address] May, [facility] [address] [place] [id number] [place] [address] Mar, Environmental allergies Z91. 09 ; Migraines G43.909 and Weight gain R63.5 [facility] [address] [facility] [id number] [address] [place] [address] Mar, Other headache syndrome G44. 89 [facility] [address] [facility] [id number] [address] [place] [address] Jan, Migraine syndrome G43.909 [facility] [address] [facility] [id number] [address] [place] [address] 13 Jan, 2016 Migraines G43.909 ; Environm ental allergies Z91.09 and Weight gain R63.5 [facility] [address] [facility] [id number] [address] [place] [address] 08 Jan, 2016 [facility] [address] [facility] [id number] [address] [place] [address] December, Migraines G43.909 [facility] [address] [facility] [id number] [address] [place] [address] Nov, Migraines G43.909 [facility] [address] [facility] [id number] [address] [place] [address] Aug, Migraines G43.909 ; Weight g ain R63.5 and Sinusitis J32.9 [facility] [address] [facility] [id number] [address] [place] [address] Jun, [facility] [address] [facility] [id number] [address] [place] [address] Jun, Weight gain R63.5 ; Migraine s G43.909 ; Nausea R11.0 and Environmental allergies Z91.09 [facility] [address] [facility] [id number] [address] [place] [address] May, [facility] [address] [facility] [id number] [address] [place] [address] May, [facility] [address] [facility] [id number] [address] [place] [address] Jun, [facility] [address] [place] [id number] [address] [place] [address] Jun, [facility] [address] [facility] [id number] [address] [place] [address] 15 Nov, 2013 [facility] [address] [place] [id number] [address] [place] [address] Nov, [facility] [address] [facility] [id number] [address] [place] [address] May, [facility] [address] [facility] [id number] [address] [place] [address] May, [facility] [address] [facility] [id number] [address] [place] [address] Oct, IMMUNIZATIONS No Known Immunizations SOCIAL HISTORY Never Assessed REASON FOR VISIT PLAN OF CARE VITAL SIGNS MEDICATIONS Unknown Medications RESULTS No Results PROCEDURES No Known procedures INSTRUCTIONS MEDICATIONS ADMINISTERED No Known Medications MEDICAL (GENERAL) HISTORY Type Description Date Medical History Sinusitis Medical History Migraines Surgical History Surgical History breast augmentation 2009 Surgical History hip surgery as child Hospitalization History Childbirth
--- OUTSIDE RECORDS SUMMARY | 2020-01-09 20:58 | XMS REPORT ---
Author Author Mary DE LEON Organization [facility] Address [address] [place] [address] Care Team Providers Care Guardian Family Member Name Role Phone DE LEONBON Mueller Unavailable PROBLEMS Type Condition ICD9-CM Code [id number] Code Onset Dates Condition S tatus SNOMED Code Problem Migraine without status migr ainosus, not intractable, unspecified migraine type G43.909 Active 29161288 Problem Stress F43.9 Active 77543040 Problem Migraines G43.909 Active 87396855 Problem Acute seasonal allergic rhinitis, unspecified trigger J30.2 Active 197019682 Problem Chronic maxillary sinusitis J32.0 Ac tive 85371400 ALLERGIES No Information ENCOUNTERS Encounter Location Date Diagnosis [facility] [address] [address] Mar, Migraine without status migr ainosus, not intractable, unspecified migraine type G43.909 and Migraines G43.909 [facility] [address] [address] Jan, Migraine without status migr ainosus, not intractable, unspecified migraine type G43.909 [facility] [address] [place] [address] [id number] [address] [place] [address] December, Rash R21 [facility] [address] [place] [id number] [address] [place] [address] Oct, Migraines G43.909 ; Chronic maxillary sinusitis J32.0 ; Stress F43.9 ; Screening cholesterol level Z13.220 and Screening for diabetes mellitus Z13.1 [facility] [address] [place] [id number] [address] [place] [address] Oct, Migraines G43.909 [facility] [address] [place] [address] 07 Sep, 2017 Migraines G43.909 [facility] WALK IN [facility] [address] [address] 08 Jul, 2017 Viral gastroenteritis A08.4 and Acute seasonal allergic rhinitis, unspecified trigger J30.2 [place] [address] [address] Mar, Migraines G43.909 [facility] [address] [address] Jan, [place] [address] [address] Jan, Migraines G43.909 [place] [address] [address] Oct, Migraines G43.909 and Enviro nmental allergies Z91.09 [place] [address] [address] 17 Sep, 2016 Wellness examination Z00.00 [place] [address] [address] 14 Sep, 2016 Lumbago with sciatica, left side M54.42 ; Other chronic pain G89.29 and Chronic maxillary sinusitis J32.0 [place] [address] [address] Jul, Migraines G43.909 ; Environm ental allergies Z91.09 ; Weight gain R63.5 and Wellness examination Z00.00 [place] [address] [address] 27 May, 2016 Environmental allergies Z91. 09 [place] [address] [address] May, [place] [address] [place] [address] Mar, Environmental allergies Z91. 09 ; Migraines G43.909 and Weight gain R63.5 [facility] [address] [place] [id number] [address] [place] [address] Mar, Other headache syndrome G44. 89 [facility] [address] [place] [id number] [address] [place] [address] Jan, Migraine syndrome G43.909 [facility] [address] [place] [id number] [place] [address] Jan, Migraines G43.909 ; Environm ental allergies Z91.09 and Weight gain R63.5 [facility] [address] [address] Jan, [facility] [address] [address] December, Migraines G43.909 [facility] [address] [address] Nov, Migraines G43.909 [facility] [address] [address] Aug, Migraines G43.909 ; Weight g ain R63.5 and Sinusitis J32.9 [place] [address] [address] Jun, [facility] [address] [address] Jun, Weight gain R63.5 ; Migraine s G43.909 ; Nausea R11.0 and Environmental allergies Z91.09 [facility] [address] [place] [id number] [address] [place] [address] May, [facility] [address] [address] May, [facility] [address] [id number] [address] [place] [address] Jun, [facility] [address] [id number] [address] [place] [address] Jun, [facility] [address] [id number] [address] [place] [address] Nov, [facility] [address] [facility] [id number] [address] [place] [address] Nov, [facility] [address] [id number] [address] [place] [address] May, [facility] [address] [facility] [id number] [address] [place] [address] May, [facility] [address] [facility] [id number] [address] [place] [address] Oct, IMMUNIZATIONS No Known Immunizations SOCIAL HISTORY Never Assessed REASON FOR VISIT Refill request PLAN OF CARE VITAL SIGNS MEDICATIONS Medication Instructions Dosage Frequency Start Date End Date Duration S tatus Zofran 4 MG Orally, PRN 3 times a day 2 tablets 8h Jun, Active RESULTS No Results PROCEDURES No Known procedures INSTRUCTIONS MEDICATIONS ADMINISTERED No Known Medications MEDICAL (GENERAL) HISTORY Type Description Date Medical History Sinusitis Medical History Migraines Surgical History Surgical History breast augmentation 2009 Surgical History hip surgery as child Hospitalization History Childbirth
--- OUTSIDE RECORDS SUMMARY | 2020-01-09 20:59 | XMS REPORT ---
Author Author Mary CESAR [facility] Address [address] [place] [address] Care Team Providers Care Patcher Bowling Ball Name Role Phone CESAR SIGRID Unavailable PROBLEMS Type Condition ICD9-CM Code IHR99-KS Code Onset Dates Condition S tatus SNOMED Code Problem Nausea R11.0 Active 951923959 Problem Migraines G43.909 Active 82867389 Problem Environmental allergies Z91.09 Active 249687032 Problem Chronic maxillary sinusitis J32.0 Ac tive 46842362 Problem Lumbago with sciatica, left side M54.42 Active 456311868 Problem Sinusitis J32.9 Active 38485881 Problem Weight gain R63.5 Active 0172991 Problem Other chronic pain G89.29 Active 8 1879579 Problem Wellness examination Z00.00 Active 192538961 ALLERGIES No Information SOCIAL HISTORY Never Assessed PLAN OF CARE VITAL SIGNS MEDICATIONS Unknown Medications RESULTS Name Result Date Reference Range CBC 2016-09-21 WBC 4.4 3.4-10.8 RBC 3.96 3.77-5.28 Hemoglobin 13.0 11.1-15.9 Hematocrit 39.3 34.0-46.6 MCV 99 79-97 MCH 32.8 26.6-33.0 MCHC 33.1 31.5-35.7 RDW 13.2 12.3-15.4 Platelets 217 150-379 Neutrophils 63 Lymphs 26 Monocytes 9 Eos 1 Basos 1 Neutrophils (Absolute) 2.8 1.4-7.0 Lymphs (Absolute) 1.1 0.7-3.1 Monocytes(Absolute) 0.4 0.1-0.9 Eos (Absolute) 0.0 0.0-0.4 Baso (Absolute) 0.0 0.0-0.2 Immature Granulocytes 0 Immature Grans (Abs) 0.0 0.0-0.1 LIPID PANEL 2016-09-21 Cholesterol, Total 186 100-199 Triglycerides 70 0-149 HDL Cholesterol 82 >39 VLDL Cholesterol Arun 14 5-40 LDL Cholesterol Calc 90 0-99 Comment: CMP 2016-09-21 Glucose, Serum 81 65-99 BUN 10 6-24 Creatinine, Serum 0.83 0.57-1.00 eGFR If NonAfricn Am 85 >59 eGFR If Africn Am 98 >59 BUN/Creatinine Ratio 12 9-23 Sodium, Serum 140 134-144 Potassium, Serum 4.4 3.5-5.2 Chloride, Serum 104 96-106 Carbon Dioxide, Total 24 18-29 Calcium, Serum 9.2 8.7-10.2 Protein, Total, Serum 6.0 6.0-8.5 Albumin, Serum 4.0 3.5-5.5 Globulin, Total 2.0 1.5-4.5 A/G Ratio 2.0 1.1-2.5 Bilirubin, Total 0.5 0.0-1.2 Alkaline Phosphatase, S 39 39-117 AST (SGOT) 25 0-40 ALT (SGPT) 37 0-32 PROCEDURES Procedure Date Ordered Result Body Site COMPLETE CBC W/AUTO DIFF WBC Sep 21, 2016 LIPID PANEL Sep 21, 2016 VENIPUNCT, ROUTINE* Sep 21, 2016 COMPREHEN METABOLIC PANEL Sep 21, 2016 IMMUNIZATIONS No Known Immunizations MEDICAL (GENERAL) HISTORY Type Description Date Medical History Sinusitis Medical History Migraines Surgical History Surgical History breast augmentation 2009 Surgical History hip surgery as child Hospitalization History Childbirth
--- OUTSIDE RECORDS SUMMARY | 2020-01-09 20:59 | XMS REPORT ---
Author Author Mary CESAR [facility] Address [address] [place] [address] Care Team Providers Care Electroplater Name Role Phone SAL CESARE Unavailable PROBLEMS Type Condition ICD9-CM Code [id number] Code Onset Dates Condition S tatus SNOMED Code Problem Nausea R11.0 Active 393530882 Problem Migraines G43.909 Active 08605140 Problem Environmental allergies Z91.09 Active 252698791 Problem Chronic maxillary sinusitis J32.0 Ac tive 10147607 Problem Lumbago with sciatica, left side M54.42 Active 398525915 Problem Sinusitis J32.9 Active 09889222 Problem Weight gain R63.5 Active 3408853 Problem Other chronic pain G89.29 Active 8 2883433 Problem Wellness examination Z00.00 Active 898894204 ALLERGIES Substance Reaction Event Type Date Status Penicillamine Unknown Drug Allergy Sep, Active SOCIAL HISTORY Never Assessed PLAN OF CARE Activity Details Follow Up 2 Weeks Reason: VITAL SIGNS Height 69 in 2016-09-18 Weight 159.4 lbs 2016-09-18 Temperature 98.0 degrees Fahrenheit 2016-09-18 Heart Rate 88 bpm 2016-09-18 Respiratory Rate 18 2016-09-18 BMI 23.54 kg/m2 2016-09-18 Blood pressure systolic 130 mmHg 2016-09-18 Blood pressure diastolic 80 mmHg 2016-09-18 MEDICATIONS Medication Instructions Dosage Frequency Start Date End Date Duration S tatus Diclofenac Sodium 75 MG Orally Twice a day 1 tablet with food or mi lk 12h Sep, Oct, 30 day(s) Active Hydrocodone-Acetaminophen 7.5-325 MG Orally every 6 hrs 1 tablet as needed 6h Sep, Active Treximet 85-500 MG Orally Once a day TAKE ONE TABLET BY M OUTH ONCE DAILY NEEDED 24h 18 Active Zofran 4 MG Orally 3 times a day 2 tablets 8h Jun, Active RESULTS Name Result Date Reference Range Xray : Spine, Lumbar 2-3 views (IN HOUSE) 2017-0 2-14 PROCEDURES Procedure Date Ordered Result Body Site X-RAY EXAM OF LOWER SPINE Sep 18, 2016 THER/PROPH/DIAG INJ, SC/IM Sep 18, 2016 DEPO MEDROL 40 MG/ML Sep 18, 2016 DEXAMETHASONE 4MG/ML (PER 1 MG) Sep 18, 2016 IMMUNIZATIONS Vaccine Route Administration Date Status DEXAMETHASONE 4MG/ML (PER 1 MG) IM Intramuscular Sep 18, 2016 Administered DEPO MEDROL 40 MG/ML IM Intramuscular Sep 18, 2016 Administer ed MEDICAL (GENERAL) HISTORY Type Description Date Medical History Sinusitis Medical History Migraines Surgical History Surgical History breast augmentation 2009 Surgical History hip surgery as child Hospitalization History Childbirth
--- OUTSIDE RECORDS SUMMARY | 2020-01-09 20:59 | XMS REPORT ---
Author Author Mary Crowder Organization [facility] Address [address] [place] [address] Care Team Providers Care Dressing Machine Operator Name Role Phone SIGRID Crowder Unavailable PROBLEMS Type Condition ICD9-CM Code [id number] Code Onset Dates Condition S tatus SNOMED Code Problem Acute seasonal allergic rhinitis, unspecified trigger J30.2 Active 796286161 Problem Chronic maxillary sinusitis J32.0 Ac tive 03620676 Problem Migraines G43.909 Active 39509038 ALLERGIES Substance Reaction Event Type Date Status Penicillamine Unknown Drug Allergy Jan, Active ENCOUNTERS Encounter Location Date Diagnosis [facility] [address] [address] Oct, Migraines G43.909 and Chroni c maxillary sinusitis J32.0 [facility] [address] [address] Oct, Migraines G43.909 [facility] [address] [address] Sep, Migraines G43.909 [facility] [address] [address] Jul, Viral gastroenteritis A08.4 and Acute seasonal allergic rhinitis, unspecified trigger J30.2 [facility] [address] [address] Mar, Migraines G43.909 [facility] [address] [address] Jan, [facility] [address] [address] Jan, Migraines G43.909 [facility] [address] [facility] [id number] [address] [place] [address] Oct, Migraines G43.909 and Enviro nmental allergies Z91.09 [facility] [address] [facility] [id number] [address] [place] [address] 17 Sep, 2016 Wellness examination Z00.00 [place] [address] [address] [facility] [id number] [address] [place] [address] 14 Sep, 2016 Lumbago with sciatica, left side M54.42 ; Other chronic pain G89.29 and Chronic maxillary sinusitis J32.0 [place] [address] [address] [place] [id number] [address] [place] [address] Jul, Migraines G43.909 ; Environm ental allergies Z91.09 ; Weight gain R63.5 and Wellness examination Z00.00 [place] [address] [address] [place] [id number] [address] [place] [address] May, Environmental allergies Z91. 09 [place] [address] [address] [facility] [id number] [address] [place] [address] May, [place] [address] [place] [id number] [address] [place] [address] Mar, Environmental allergies Z91. 09 ; Migraines G43.909 and Weight gain R63.5 [facility] [address] [place] [id number] [address] [place] [address] Mar, Other headache syndrome G44. 89 [facility] [address] [facility] [id number] [address] [place] [address] Jan, Migraine syndrome G43.909 [place] [address] [address] [place] [id number] [address] [place] [address] Jan, Migraines G43.909 ; Environm ental allergies Z91.09 and Weight gain R63.5 [place] [address] [place] [id number] [address] [place] [address] 08 Jan, 2016 [facility] [address] [facility] [id number] [address] [place] [address] December, Migraines G43.909 [facility] [address] [facility] [id number] [address] [place] [address] 18 Nov, 2015 Migraines G43.909 [facility] [address] [facility] [id number] [address] [place] [address] Aug, Migraines G43.909 ; Weight g ain R63.5 and Sinusitis J32.9 [facility] [address] [facility] [id number] [address] [place] [phone] Jun, [facility] [address] [facility] [id number] [address] [place] [address] Jun, Weight gain R63.5 ; Migraine s G43.909 ; Nausea R11.0 and Environmental allergies Z91.09 [facility] [address] [facility] [id number] [address] [place] [phone] May, [facility] [address] [facility] [id number] [address] [place] [phone] May, [facility] [address] [facility] [id number] [address] [place] [phone] Jun, [facility] [address] [facility] [id number] [address] [place] [phone] Jun, [facility] [address] [facility] [id number] [address] [place] [phone] 15 Nov, 2013 [facility] [address] [facility] [id number] [address] [place] [phone] Nov, [facility] [address] [facility] [id number] [address] [place] [phone] May, [facility] [address] [facility] [id number] [address] [place] [phone] May, [facility] [address] [facility] [id number] [address] [place] [address] Oct, IMMUNIZATIONS Vaccine Route Administration Date Status DEPO MEDROL 40 MG/ML IM Intramuscular January 31, 2017 Administer ed TORADOL (IM) 60 MG/2ML (UP TO 15 MG) IM Intramuscular January 31 017 Administered DEXAMETHASONE 20MG/5 ML (PER 1 MG) IM Intramuscular January 31 7 Administered SOCIAL HISTORY Never Assessed REASON FOR VISIT Injection, toradol 60 and decadron 4. KBoleRN, pt asked to get an allergy shot i nstead of just decadron (40 mg depo-medrol, and 4 of decadron). Per LAS this is ok., wants to make sure she has refill of treximet PLAN OF CARE VITAL SIGNS MEDICATIONS Medication Instructions Dosage Frequency Start Date End Date Duration S tatus Hydrocodone-Acetaminophen 7.5-325 MG Orally every 6 hrs 1 tablet as needed 6h Sep, Active Treximet 85-500 MG TAKE ONE TABLET BY MOUTH ONCE DAILY NEEDED 18 Active Zofran 4 MG Orally 3 times a day 2 tablets 8h Jun, Active RESULTS No Results PROCEDURES Procedure Date Ordered Result Body Site DEPO MEDROL 40 MG/ML January 31, 2017 THER/PROPH/DIAG INJ, SC/IM January 31, 2017 TORADOL (IM) 60 MG/2ML (UP TO 15 MG) January 31, 2017 DEXAMETHASONE 20MG/5 ML (PER 1 MG) January 31, 2017 INSTRUCTIONS MEDICATIONS ADMINISTERED No Known Medications MEDICAL (GENERAL) HISTORY Type Description Date Medical History Sinusitis Medical History Migraines Surgical History Surgical History breast augmentation 2009 Surgical History hip surgery as child Hospitalization History Childbirth
--- OUTSIDE RECORDS SUMMARY | 2020-01-09 20:59 | XMS REPORT ---
Author Author Mary CESAR Organization [facility] Address [address] [place] [address] Care Team Providers Care Patch Finisher Name Role Phone CESARENDY POPENETTE Unavailable PROBLEMS Type Condition ICD9-CM Code [id number] Code Onset Dates Condition S tatus SNOMED Code Problem Nausea R11.0 Active 650548387 Problem Migraines G43.909 Active 13552276 Problem Environmental allergies Z91.09 Active 076427520 Problem Chronic maxillary sinusitis J32.0 Ac tive 29135872 Problem Lumbago with sciatica, left side M54.42 Active 451825783 Problem Sinusitis J32.9 Active 37698689 Problem Weight gain R63.5 Active 2977883 Problem Other chronic pain G89.29 Active 8 9201729 Problem Wellness examination Z00.00 Active 549156518 ALLERGIES Substance Reaction Event Type Date Status Penicillamine Unknown Drug Allergy Oct, Active SOCIAL HISTORY Never Assessed PLAN OF CARE Activity Details Follow Up 2 Weeks, prn Reason: VITAL SIGNS Height 69 in 2016-10-10 Weight 157.3 lbs 2016-10-10 Temperature 97.8 degrees Fahrenheit 2016-10-10 Heart Rate 86 bpm 2016-10-10 Respiratory Rate 18 2016-10-10 BMI 23.23 kg/m2 2016-10-10 Blood pressure systolic 128 mmHg 2016-10-10 Blood pressure diastolic 78 mmHg 2016-10-10 MEDICATIONS Medication Instructions Dosage Frequency Start Date End Date Duration S tatus Zofran 4 MG Orally 3 times a day 2 tablets 8h Jun, Active Treximet 85-500 MG Orally Once a day TAKE ONE TABLET BY M OUTH ONCE DAILY NEEDED 24h Active PredniSONE 20 mg Orally twice a day 1 tablet 12h 08 Oct, 2016 3 Oct, 2016 05 days Active Hydrocodone-Acetaminophen 7.5-325 MG Orally every 6 hrs 1 tablet as needed 6h 14 Sep, 2016 Active RESULTS No Results PROCEDURES Procedure Date Ordered Result Body Site TORADOL (IM) 60 MG/2ML (UP TO 15 MG) October 10, 2016 THER/PROPH/DIAG INJ, SC/IM October 10, 2016 IMMUNIZATIONS Vaccine Route Administration Date Status TORADOL (IM) 60 MG/2ML (UP TO 15 MG) IM Intramuscular October 10, 2016 Administered MEDICAL (GENERAL) HISTORY Type Description Date Medical History Sinusitis Medical History Migraines Surgical History Surgical History breast augmentation 2009 Surgical History hip surgery as child Hospitalization History Childbirth
--- OUTSIDE RECORDS SUMMARY | 2020-01-09 20:59 | XMS REPORT ---
Author Author Mary Crowder Organization [facility] Address [address] [place] [address] Care Team Providers Care Staff Nurse Anesthetist Name Role Phone SIGRID Crowder Unavailable PROBLEMS Type Condition ICD9-CM Code [id number] Code Onset Dates Condition S tatus SNOMED Code Problem Environmental allergies Z91.09 Active 712428833 Problem Weight gain R63.5 Active 5419112 Problem Migraines G43.909 Active 05831492 Problem Nausea R11.0 Active 620336096 Problem Acute seasonal allergic rhinitis, unspecified trigger J30.2 Active 074383737 Problem Chronic maxillary sinusitis J32.0 Ac tive 95140453 Problem Wellness examination Z00.00 Active 967013709 Problem Sinusitis J32.9 Active 66053352 Problem Lumbago with sciatica, left side M54.42 Active 437018523 Problem Other chronic pain G89.29 Active 8 9765337 ALLERGIES No Information ENCOUNTERS Encounter Location Date Diagnosis [facility] [address] [address] Oct, [facility] [address] [address] Oct, Migraines G43.909 [facility] [address] [address] Sep, Migraines G43.909 [facility] [address] [address] Jul, Viral gastroenteritis A08.4 and Acute seasonal allergic rhinitis, unspecified trigger J30.2 [facility] [address] [address] Mar, Migraines G43.909 [facility] [address] [facility] [id number] [address] [place] [address] Jan, [place] [address] [address] Jan, Migraines G43.909 [place] [address] [address] Oct, Migraines G43.909 and Enviro nmental allergies Z91.09 [facility] [address] [place] [id number] [address] [place] [address] 17 Sep, 2016 Wellness examination Z00.00 [place] [address] [address] 14 Sep, 2016 Lumbago with sciatica, left side M54.42 ; Other chronic pain G89.29 and Chronic maxillary sinusitis J32.0 [place] [address] [address] Jul, Migraines G43.909 ; Environm ental allergies Z91.09 ; Weight gain R63.5 and Wellness examination Z00.00 [place] [address] [address] 27 May, 2016 Environmental allergies Z91. 09 [place] [address] [address] [place] [id number] [address] [place] [address] May, [facility] [address] [address] Mar, Environmental allergies Z91. 09 ; Migraines G43.909 and Weight gain R63.5 [facility] [address] [address] Mar, Other headache syndrome G44. 89 [facility] [address] [place] [id number] [address] [place] [address] Jan, Migraine syndrome G43.909 [place] [address] [place] [id number] [place] [address] 13 Jan, 2016 Migraines G43.909 ; Environm ental allergies Z91.09 and Weight gain R63.5 [facility] [address] [facility] [id number] [address] [place] [address] 08 Jan, 2016 [facility] [address] [place] [id number] [place] [address] December, Migraines G43.909 [facility] [address] [facility] [id number] [address] [place] [address] 18 Nov, 2015 Migraines G43.909 [facility] [address] [address] Aug, Migraines G43.909 ; Weight g ain R63.5 and Sinusitis J32.9 [facility] [address] [address] Jun, [facility] [address] [place] [id number] [address] [place] [address] Jun, Weight gain R63.5 ; Migraine s G43.909 ; Nausea R11.0 and Environmental allergies Z91.09 [facility] [address] [place] [id number] [address] [place] [phone] May, [facility] [address] [place] [id number] [address] [place] [address] May, [facility] [address] [place] [id number] [address] [place] [phone] Jun, [facility] [address] [address] Jun, [facility] [address] [place] [id number] [address] [place] [address] 15 Nov, 2013 [facility] [address] [place] [id number] [place] [address] Nov, [facility] [address] [facility] [id number] [address] [place] [phone] May, [facility] [address] [facility] [id number] [address] [place] [phone] May, [facility] [address] [facility] [id number] [address] [place] [phone] Oct, IMMUNIZATIONS No Known Immunizations SOCIAL HISTORY Never Assessed REASON FOR VISIT migraine PLAN OF CARE VITAL SIGNS MEDICATIONS Unknown Medications RESULTS No Results PROCEDURES No Known procedures INSTRUCTIONS MEDICATIONS ADMINISTERED No Known Medications MEDICAL (GENERAL) HISTORY Type Description Date Medical History Sinusitis Medical History Migraines Surgical History Surgical History breast augmentation 2009 Surgical History hip surgery as child Hospitalization History Childbirth
--- OUTSIDE RECORDS SUMMARY | 2020-01-09 20:59 | XMS REPORT ---
Author Mary Del Rio Organization [employer] Address Unknown Phone Unavailable Care Team Providers Care Propellant Charge Loader Name Role Phone SIGRID CESAR CP Unavailable Allergies, Adverse Reactions, Alerts Substance Reaction Event Type Penicillamine Info Not Available Drug Allergy Problems Problem Type Condition Code Onset Dates Condition Statu s Assessment Weight gain R63.5 Active Problem Weight gain R63.5 Active Problem Migraines G43.909 Active Problem Sinusitis J32.9 Active Assessment Environmental allergies Z91.09 Acti ve Assessment Migraines G43.909 Active Problem Nausea R11.0 Active Problem Environmental allergies Z91.09 Acti ve Medications Medication Code System Code Instructions Start Date End Date Status Dosage Treximet [facility] [id number] 85-500 MG 2 times a day TAKE ONE TABLET BY MOUTH ONCE DAILY NEEDED Phentermine HCl [facility] [address]-59 37.5 MG Orally Once a day Jun 13, 2015 1 tablet Procedures Procedure Coding System Code Date DEPO MEDROL 40 MG/ML CPT-4 J1030 Mar 26 6 THER/PROPH/DIAG INJ, SC/IM CPT-4 12397 Mar 062015 Office Visit, Est Pt., Level 3 CPT-4 32755 A 2015 DEXAMETHASONE 4MG/ML (PER 1 MG) CPT-4 J1100 Mar 26, 2016 Vital Signs Date/Time: Mar 26, 2016 Cardiac Monitoring Heart Rate 80 bpm Weight 156.1 lbs Height 69 in BMI 23.05 Index Blood Pressure Diastolic 88 mmHg Blood Pressure Systolic 126 mmHg Results No Known Results Summary Purpose [employer] Submission
--- OUTSIDE RECORDS SUMMARY | 2020-01-09 20:59 | XMS REPORT ---
Author Author Mary MCLEOD Organization [employer] Address Unknown Phone Unavailable Care Team Providers Care Nurse Executive Name Role Phone MAGGY MCLEOD CP Unavailable Allergies No Known Allergies Problems No Known Problems Medications No Known Medications Results No Known Results Summary Purpose [employer] Submission
--- OUTSIDE RECORDS SUMMARY | 2020-01-09 20:59 | XMS REPORT ---
Author Mary Del Rio Organization [employer] Address Unknown Phone Unavailable Care Team Providers Care Package Dyer Name Role Phone SIGRID CESAR CP Unavailable Allergies No Known Allergies Problems Problem Type Condition Code Onset Dates Condition Statu s Problem Weight gain R63.5 Active Problem Migraines G43.909 Active Problem Sinusitis J32.9 Active Problem Nausea R11.0 Active Problem Environmental allergies Z91.09 Acti ve Medications No Known Medications Results No Known Results Summary Purpose [employer] Submission
--- OUTSIDE RECORDS SUMMARY | 2020-01-09 20:59 | XMS REPORT ---
Author Author Mary MUNOZ [facility] Address [address] [place] [address] Care Team Providers Care Airplane Pilot Supervisor Name Role Phone TAMMYANIKETJUMA Unavailable PROBLEMS Type Condition ICD9-CM Code ZRK06-TU Code Onset Dates Condition S tatus SNOMED Code Problem Migraine without status migr ainosus, not intractable, unspecified migraine type G43.909 Active 05726522 Problem Stress F43.9 Active 66444890 Problem Migraines G43.909 Active 44900462 Problem Acute seasonal allergic rhinitis, unspecified trigger J30.2 Active 096471046 Problem Chronic maxillary sinusitis J32.0 Ac tive 00199889 ALLERGIES Substance Reaction Event Type Date Status Penicillamine Unknown Drug Allergy Jul, Active ENCOUNTERS Encounter Location Date Diagnosis [facility] [address] [address] Jan, Migraine without status migr ainosus, not intractable, unspecified migraine type G43.909 [facility] [address] [address] December, Rash R21 [facility] [address] [address] Oct, Migraines G43.909 ; Chronic maxillary sinusitis J32.0 ; Stress F43.9 ; Screening cholesterol level Z13.220 and Screening for diabetes mellitus Z13.1 [facility] [address] [address] Oct, Migraines G43.909 [facility] [address] [address] Sep, Migraines G43.909 [facility] [address] [address] 08 Jul, 2017 Viral gastroenteritis A08.4 and Acute seasonal allergic rhinitis, unspecified trigger J30.2 [place] [address] [address] Mar, Migraines G43.909 [place] [address] [address] Jan, [place] [address] [address] Jan, Migraines G43.909 [place] [address] [address] Oct, Migraines G43.909 and Enviro nmental allergies Z91.09 [place] [address] [address] 17 Sep, 2016 Wellness examination Z00.00 [place] [address] [address] 14 Sep, 2016 Lumbago with sciatica, left side M54.42 ; Other chronic pain G89.29 and Chronic maxillary sinusitis J32.0 [place] [address] [address] Jul, Migraines G43.909 ; Environm ental allergies Z91.09 ; Weight gain R63.5 and Wellness examination Z00.00 [place] [address] [address] 27 May, 2016 Environmental allergies Z91. 09 [place] [address] [address] May, [place] [address] [address] Mar, Environmental allergies Z91. 09 ; Migraines G43.909 and Weight gain R63.5 [facility] [address] [id number] [address] [place] [address] Mar, Other headache syndrome G44. 89 [facility] [address] [facility] [id number] [address] [place] [address] 30 Jan, 2016 Migraine syndrome G43.909 [facility] [address] [facility] [id number] [address] [place] [address] Jan, Migraines G43.909 ; Environm ental allergies Z91.09 and Weight gain R63.5 [facility] [address] [facility] [id number] [address] [place] [address] Jan, [facility] [address] [facility] [id number] [address] [place] [address] December, Migraines G43.909 [facility] [address] [facility] [id number] [address] [place] [address] Nov, Migraines G43.909 [facility] [address] [facility] [id number] [address] [place] [address] Aug, Migraines G43.909 ; Weight g ain R63.5 and Sinusitis J32.9 [facility] [address] [facility] [id number] [address] [place] [address] Jun, [facility] [address] [facility] [id number] [address] [place] [address] Jun, Weight gain R63.5 ; Migraine s G43.909 ; Nausea R11.0 and Environmental allergies Z91.09 [facility] [address] [facility] [id number] [address] [place] [address] May, [facility] [address] [facility] [id number] [address] [place] [address] May, [facility] [address] [facility] [id number] [address] [place] [address] Jun, [facility] [address] [facility] [id number] [address] [place] [address] Jun, [facility] [address] [facility] [id number] [address] [place] [address] Nov, [facility] [address] [facility] [id number] [address] [place] [address] Nov, [facility] [address] [facility] [id number] [address] [place] [address] May, [facility] [address] [facility] [id number] [address] [place] [address] May, [facility] [address] [facility] [id number] [address] [place] [address] Oct, IMMUNIZATIONS Vaccine Route Administration Date Status TORADOL (IM) 60 MG/2ML (UP TO 15 MG) IM Intramuscular Jul 12 17 Administered DEXAMETHASONE 4MG/ML (PER 1 MG) IM Intramuscular Jul 12, 2017 Administered DEPO MEDROL 40 MG/ML IM Intramuscular Jul 12, 2017 Administer ed SOCIAL HISTORY Never Assessed REASON FOR VISIT N/V/D that started 2 nocs ago. [email or web address] PLAN OF CARE Activity Details Follow Up prn Reason: VITAL SIGNS Height 69 in 2017-07-12 Weight 162.4 lbs 2017-07-12 Temperature 98.4 degrees Fahrenheit 2017-07-12 Heart Rate 80 bpm 2017-07-12 Respiratory Rate 20 2017-07-12 BMI 23.98 kg/m2 2017-07-12 Blood pressure systolic 126 mmHg 2017-07-12 Blood pressure diastolic 76 mmHg 2017-07-12 MEDICATIONS Medication Instructions Dosage Frequency Start Date End Date Duration S tatus Zofran 4 MG Orally 3 times a day 2 tablets 8h Jun, Active Treximet 85-500 MG TAKE ONE TABLET BY MOUTH ONCE DAILY NEEDED 18 Active Hydrocodone-Acetaminophen 7.5-325 MG Orally every 6 hrs 1 tablet as needed 6h Sep, Not-Taking Zofran ODT 4 MG Orally every 8 hrs 1 tablet on the tongue and al low to dissolve 8h Jul, 5 days Active Phentermine HCl 37.5 MG Orally Once a day 1 tablet 24h Jun, Not-Taking RESULTS No Results PROCEDURES Procedure Date Ordered Result Body Site TORADOL (IM) 60 MG/2ML (UP TO 15 MG) Jul 12, 2017 DEPO MEDROL 40 MG/ML Jul 12, 2017 THER/PROPH/DIAG INJ, SC/IM Jul 12, 2017 DEXAMETHASONE 4MG/ML (PER 1 MG) Jul 12, 2017 INSTRUCTIONS MEDICATIONS ADMINISTERED No Known Medications MEDICAL (GENERAL) HISTORY Type Description Date Medical History Sinusitis Medical History Migraines Surgical History Surgical History breast augmentation 2009 Surgical History hip surgery as child Hospitalization History Childbirth
--- OUTSIDE RECORDS SUMMARY | 2020-01-09 20:59 | XMS REPORT ---
Author Author Mary POWERS Organization [facility] Address [address] [place] [address] Care Team Providers Care Engine Test Cell Technician Name Role Phone KELSEY POWERS Unavailable PROBLEMS Type Condition ICD9-CM Code [id number] Code Onset Dates Condition S tatus SNOMED Code Problem Migraine without status migr ainosus, not intractable, unspecified migraine type G43.909 Active 55340903 Problem Stress F43.9 Active 01445853 Problem Migraines G43.909 Active 94830122 Problem Acute seasonal allergic rhinitis, unspecified trigger J30.2 Active 340220393 Problem Chronic maxillary sinusitis J32.0 Ac tive 18195667 ALLERGIES Substance Reaction Event Type Date Status Penicillamine Unknown Drug Allergy Oct, Active ENCOUNTERS Encounter Location Date Diagnosis [facility] [address] [address] Jan, Migraine without status migr ainosus, not intractable, unspecified migraine type G43.909 [facility] [address] [address] December, Rash R21 [facility] [address] [address] Oct, Migraines G43.909 ; Chronic maxillary sinusitis J32.0 ; Stress F43.9 ; Screening cholesterol level Z13.220 and Screening for diabetes mellitus Z13.1 [facility] [address] [address] Oct, Migraines G43.909 [facility] [address] [address] Sep, Migraines G43.909 [facility] [address] [address] 08 Jul, 2017 Viral gastroenteritis A08.4 and Acute seasonal allergic rhinitis, unspecified trigger J30.2 [place] [address] [address] Mar, Migraines G43.909 [place] [address] [address] Jan, [place] [address] [address] Jan, Migraines G43.909 [place] [address] [address] Oct, Migraines G43.909 and Enviro nmental allergies Z91.09 [place] [address] [address] 17 Sep, 2016 Wellness examination Z00.00 [place] [address] [address] 14 Sep, 2016 Lumbago with sciatica, left side M54.42 ; Other chronic pain G89.29 and Chronic maxillary sinusitis J32.0 [place] [address] [address] Jul, Migraines G43.909 ; Environm ental allergies Z91.09 ; Weight gain R63.5 and Wellness examination Z00.00 [place] [address] [address] 27 May, 2016 Environmental allergies Z91. 09 [place] [address] [address] May, [place] [address] [address] Mar, Environmental allergies Z91. 09 ; Migraines G43.909 and Weight gain R63.5 [facility] [address] [place] [id number] [address] [place] [address] Mar, Other headache syndrome G44. 89 [facility] [address] [facility] [id number] [address] [place] [address] Jan, Migraine syndrome G43.909 [facility] [address] [facility] [id number] [address] [place] [address] Jan, Migraines G43.909 ; Environm ental allergies Z91.09 and Weight gain R63.5 [facility] [address] [facility] [id number] [address] [place] [address] Jan, [facility] [address] [facility] [id number] [address] [place] [address] December, Migraines G43.909 [facility] [address] [facility] [id number] [address] [place] [address] Nov, Migraines G43.909 [facility] [address] [facility] [id number] [address] [place] [address] Aug, Migraines G43.909 ; Weight g ain R63.5 and Sinusitis J32.9 [facility] [address] [facility] [id number] [address] [place] [address] Jun, [facility] [address] [facility] [id number] [address] [place] [address] Jun, Weight gain R63.5 ; Migraine s G43.909 ; Nausea R11.0 and Environmental allergies Z91.09 [facility] [address] [facility] [id number] [address] [place] [address] May, [facility] [address] [facility] [id number] [address] [place] [phone] May, [facility] [address] [facility] [id number] [address] [place] [phone] 07 Jun, 2014 [facility] [address] [place] [id number] [address] [place] [phone] Jun, [facility] [address] [facility] [id number] [address] [place] [phone] Nov, [facility] [address] [facility] [id number] [address] [place] [address] Nov, [facility] [address] [facility] [id number] [address] [place] [address] May, [facility] [address] [facility] [id number] [address] [place] [phone] May, [facility] [address] [facility] [id number] [address] [place] [phone] Oct, IMMUNIZATIONS No Known Immunizations SOCIAL HISTORY Never Assessed REASON FOR VISIT Migraine since saturday causing vomiting and triggered by the weather-[place] PLAN OF CARE Activity Details Follow Up prn Reason: VITAL SIGNS Height 69 in 2017-10-21 Weight 159.8 lbs 2017-10-21 Temperature 98.3 degrees Fahrenheit 2017-10-21 Heart Rate 78 bpm 2017-10-21 Respiratory Rate 20 2017-10-21 BMI 23.60 kg/m2 2017-10-21 Blood pressure systolic 118 mmHg 2017-10-21 Blood pressure diastolic 74 mmHg 2017-10-21 MEDICATIONS Medication Instructions Dosage Frequency Start Date End Date Duration S rhoda Zofran ODT 4 MG Orally every 8 hrs 1 tablet on the tongue and al low to dissolve 8h Jul, 5 days Active Treximet 85-500 MG TAKE ONE TABLET BY MOUTH ONCE DAILY NEEDED 18 Active ZyrTEC Active RESULTS No Results PROCEDURES No Known procedures INSTRUCTIONS MEDICATIONS ADMINISTERED No Known Medications MEDICAL (GENERAL) HISTORY Type Description Date Medical History Sinusitis Medical History Migraines Surgical History Surgical History breast augmentation 2009 Surgical History hip surgery as child Hospitalization History Childbirth
--- OUTSIDE RECORDS SUMMARY | 2020-01-09 20:59 | XMS REPORT ---
Author Author Mary CESAR Organization [facility] Address [address] [place] [address] Care Team Providers Care Sleeping Car Porter Name Role Phone CESARENDY POPENETTE Unavailable PROBLEMS Type Condition ICD9-CM Code SXV01-VK Code Onset Dates Condition S tatus SNOMED Code Problem Environmental allergies Z91.09 Active 446768205 Problem Migraines G43.909 Active 11610043 Problem Nausea R11.0 Active 950137874 Problem Lumbago with sciatica, left side M54.42 Active 507892522 Problem Other chronic pain G89.29 Active 8 5364610 Problem Sinusitis J32.9 Active 61955740 Problem Weight gain R63.5 Active 4367363 Problem Chronic maxillary sinusitis J32.0 Ac tive 72848191 Problem Wellness examination Z00.00 Active 966112255 ALLERGIES Substance Reaction Event Type Date Status Penicillamine Unknown Drug Allergy Jul, Active SOCIAL HISTORY No smoking Hx information available PLAN OF CARE Activity Details Follow Up 3 Months Reason:migraines VITAL SIGNS Height 69 in 2016-08-03 Weight 152.3 lbs 2016-08-03 Temperature 98.2 degrees Fahrenheit 2016-08-03 Heart Rate 72 bpm 2016-08-03 Respiratory Rate 18 2016-08-03 BMI 22.49 kg/m2 2016-08-03 Blood pressure systolic 124 mmHg 2016-08-03 Blood pressure diastolic 84 mmHg 2016-08-03 MEDICATIONS Medication Instructions Dosage Frequency Start Date End Date Duration S tatus Treximet 85-500 MG Orally Once a day TAKE ONE TABLET BY M OUTH ONCE DAILY NEEDED 24h 18 Active Phentermine HCl 37.5 MG Orally Once a day 1 tablet 24h 2015Aug, 30 days Active Zofran 4 MG Orally 3 times a day 2 tablets 8h Jun, Active RESULTS No Results PROCEDURES Procedure Date Ordered Related Diagnosis Body Site Office Visit, Est Pt., Level 3 Aug 03, 2016 DEXAMETHASONE 4MG/ML (PER 1 MG) Aug 03, 2016 DEPO MEDROL 40 MG/ML Aug 03, 2016 THER/PROPH/DIAG INJ, SC/IM Aug 03, 2016 IMMUNIZATIONS Vaccine Route Administration Date Status DEPO MEDROL 40 MG/ML IM Intramuscular Aug 03, 2016 Administer ed DEXAMETHASONE 4MG/ML (PER 1 MG) IM Intramuscular Aug 03, 2016 Administered
--- OUTSIDE RECORDS SUMMARY | 2020-01-09 20:59 | XMS REPORT ---
Author Author Mary CESAR Organization [employer] Address Unknown Phone Unavailable Care Team Providers Care Videotape Editor Name Role Phone SIGRID CESAR CP Unavailable Allergies, Adverse Reactions, Alerts Substance Reaction Event Type Penicillamine Info Not Available Drug Allergy Problems Problem Type Condition Code Onset Dates Condition Statu s Assessment Environmental allergies Z91.09 Acti ve Problem Migraines G43.909 Active Problem Nausea R11.0 Active Problem Weight gain R63.5 Active Assessment Migraines G43.909 Active Assessment Nausea R11.0 Active Problem Environmental allergies Z91.09 Acti ve Assessment Weight gain R63.5 Active Medications Medication Code System Code Instructions Start Date End Date Status Dosage Zofran [facility] [address]-75 not define d Treximet [facility] [address]-46 not defin ed Treximet [facility] [address]-10 85-500 MG Orally Jun 13, 2015 as directed Phentermine HCl [facility] [address]-93 37.5 MG Orally Once a day Jun 13, 2015 1 tablet Zofran [facility] [address]-50 4 MG Orally 3 times a day Jun 13, 2015 2 tablets Procedures Procedure Coding System Code Date THER/PROPH/DIAG INJ, SC/IM CPT-4 25107 Jun DEPO MEDROL 40 MG/ML CPT-4 J1030 Jun 13 5 DEXAMETHASONE 4MG/ML (PER 1 MG) CPT-4 J1100 Jun 13, 2015 Office Visit, New Pt., Level 4 CPT-4 47200 N 2014 Vital Signs Date/Time: Jun 13, 2015 Temperature 98.3 F Weight 161.5 lbs Height 69 in BMI 23.85 Index Blood Pressure Diastolic 26 mmHg Blood Pressure Systolic 116 mmHg Cardiac Monitoring Heart Rate 76 bpm Results No Known Results Summary Purpose [employer] Submission
--- OUTSIDE RECORDS SUMMARY | 2020-01-09 20:59 | XMS REPORT ---
Author Mary Del Rio Organization [employer] Address Unknown Phone Unavailable Care Team Providers Care Cooling Tower Operator Name Role Phone SIGRID CESAR CP Unavailable Allergies No Known Allergies Problems Problem Type Condition Code Onset Dates Condition Statu s Problem Weight gain R63.5 Active Problem Migraines G43.909 Active Problem Sinusitis J32.9 Active Assessment Migraines G43.909 Active Problem Nausea R11.0 Active Problem Environmental allergies Z91.09 Acti ve Medications Medication Code System Code Instructions Start Date End Date Status Dosage Treximet [facility] [address]-88 85-500 MG Orally Jun 13, 2015 as directed Results No Known Results Summary Purpose [employer] Submission
--- OUTSIDE RECORDS SUMMARY | 2020-01-09 20:59 | XMS REPORT ---
Author Mary Del Rio Organization [employer] Address Unknown Phone Unavailable Care Team Providers Care Gang Knife Fish Chopper Name Role Phone SIGRID CESAR CP Unavailable Allergies No Known Allergies Problems Problem Type Condition Code Onset Dates Condition Statu s Problem Migraines G43.909 Active Problem Nausea R11.0 Active Problem Weight gain R63.5 Active Problem Environmental allergies Z91.09 Acti ve Medications Medication Code System Code Instructions Start Date End Date Status Dosage Treximet [facility] [address]-73 85-500 MG Orally Jun 13, 2015 as directed Results No Known Results Summary Purpose [employer] Submission
--- OUTSIDE RECORDS SUMMARY | 2020-01-09 20:59 | XMS REPORT | Continuity of Care Document ---
Demographics Preferred Language Unknown Marital Status Unknown Pent[employer] Affiliation Unknown Race Unknown Ethnic Group Unknown Author Organization Unknown Address Unknown Phone Unavailable Allergies There is no data. Medications There is no data. Problems Date Dx Coded Attending Type Code Diagnosis Diagnosed By 02/18/2015 Ot 473.0 02/18/2015 Ot V43.82 02/18/2015 Ot V76.12 03/03/2015 GERHARD MERRITT MD Ot V76.12 08/27/2017 RENÉ WHITTEN, GERHARD Dickerson Ot V76.12 OT SCREEN MAMMO-MALIGN NEOPLASM OF [place] 04/28/2019 ESME BANKS Ot G43.909 MIGRAINE, UNSP, NOT INTRACTABLE, WITHOUT 04/28/2019 ESME BANKS Ot J01.01 ACUTE RECURRENT MAXILLARY SINUSITIS 04/29/2019 ESME BANKS Ot G43.909 MIGRAINE, UNSP, NOT INTRACTABLE, WITHOUT 04/29/2019 ESME BANKS Ot J01.01 ACUTE RECURRENT MAXILLARY SINUSITIS 05/25/2019 RENÉ WHITTEN, GERHARD Dickerson Ot Z12.31 ENCNTR SCREEN MAMMOGRAM FOR MALIGNANT NE Procedures There is no data. Results Test Result Range CBC With Differential/Platelet - 7 10:42 WBC 4.4 x10E3/uL 3.4-10.8 RBC 3.96 x10E6/uL 3.77-5.28 Hemoglobin 13.0 g/dL 11.1-15.9 Hematocrit 39.3 % 34.0-46.6 MCV 99 fL 79-97 MCH 32.8 pg 26.6-33.0 MCHC 33.1 g/dL 31.5-35.7 RDW 13.2 % 12.3-15.4 Platelets 217 x10E3/uL 150-379 Neutrophils 63 % Lymphs 26 % Monocytes 9 % Eos 1 % Basos 1 % Neutrophils (Absolute) 2.8 x10E3/uL 1.4- 7.0 Lymphs (Absolute) 1.1 x10E3/uL 0.7-3.1 Monocytes(Absolute) 0.4 x10E3/uL 0.1-0.9 Eos (Absolute) 0.0 x10E3/uL 0.0-0.4 Baso (Absolute) 0.0 x10E3/uL 0.0-0.2 Immature Granulocytes 0 % Immature Grans (Abs) 0.0 x10E3/uL 0.0-0. 1 Comp. Metabolic Panel (14) - 09/21/16 10 :42 Glucose, Serum 81 mg/dL 65-99 BUN 10 mg/dL 6-24 Creatinine, Serum 0.83 mg/dL 0.57-1.00 eGFR If NonAfricn Am 85 mL/min/1.73 >59 eGFR If Africn Am 98 mL/min/1.73 >59 BUN/Creatinine Ratio 12 9-23 Sodium, Serum 140 mmol/L 134-144 Potassium, Serum 4.4 mmol/L 3.5-5.2 Chloride, Serum 104 mmol/L 96-106 Carbon Dioxide, Total 24 mmol/L 18-29 Calcium, Serum 9.2 mg/dL 8.7-10.2 Protein, Total, Serum 6.0 g/dL 6.0-8.5 Albumin, Serum 4.0 g/dL 3.5-5.5 Globulin, Total 2.0 g/dL 1.5-4.5 A/G Ratio 2.0 1.1-2.5 Bilirubin, Total 0.5 mg/dL 0.0-1.2 Alkaline Phosphatase, S 39 IU/L 39-117 AST (SGOT) 25 IU/L 0-40 ALT (SGPT) 37 IU/L 0-32 Lipid Panel - 09/21/16 10:42 Cholesterol, Total 186 mg/dL 100-199 Triglycerides 70 mg/dL 0-149 HDL Cholesterol 82 mg/dL >39 VLDL Cholesterol Arun 14 mg/dL 5-40 LDL Cholesterol Calc 90 mg/dL 0-99 Encounters ACCT No. Visit Date/Time Discharge Status Pt. Type Provider Facility Loc./Unit Complaint [id number] 09/22/2016 08:36:00 Document Registration [id number] 11/25/2013 16:16:00 11/25/2013 23:59: 59 [facility] Outpatient RE LONG DO [id number] 10/16/2012 10:02:17 RECURRING [id number] 05/15/2019 09:52:00 23:59:59 CLS Outpatient GERHARD MERRITT MD Via [facility] RAD SCREENING [id number] 02/17/2019 08:26:00 019 23:59:59 CLS Outpatient ESME BANKS [facility] RAD ACUTE RECURRENT MAXILLA RY SINUSITIS [id number] 11/21/2018 10:29:00 019 23:59:59 CLS Preadmit GERHARD MERRITT MD [facility] RAD SCREENING [id number] 11/15/2017 10:29:00 018 23:59:59 CLS Preadmit GERHARD MERRITT MD [facility] RAD ROUTINE SCREENI NG [id number] 10/10/2017 10:37:00 018 23:59:59 CLS Preadmit GERHARD MERRITT MD [facility] RAD SCREENING [id number] 02/18/2015 09:40:00 015 23:59:59 CLS Outpatient GERHARD MERRITT MD [facility] RAD SCREENING [id number] 09/05/2011 07:24:00 Document Registration [id number] 09/29/2009 09:30:00 Document Registration [id number] 04/12/2019 12:00:00 04/12/2019 23:59:5 9 CLS Outpatient RANDY ONTIVEROS [facility]
--- OUTSIDE RECORDS SUMMARY | 2020-01-09 20:59 | XMS REPORT ---
Author Author Mary MCLEOD Organization [employer] Address Unknown Phone Unavailable Care Team Providers Care Tea Plantation Worker Name Role Phone MAGGY MCLEOD CP Unavailable Allergies No Known Allergies Problems No Known Problems Medications No Known Medications Results No Known Results Summary Purpose [employer] Submission
--- OUTSIDE RECORDS SUMMARY | 2020-01-09 20:59 | XMS REPORT ---
Author Mary Del Rio Organization [employer] Address Unknown Phone Unavailable Care Team Providers Care Slipman Name Role Phone SIGRID CESAR CP Unavailable Allergies, Adverse Reactions, Alerts Substance Reaction Event Type Penicillamine Info Not Available Drug Allergy Problems Problem Type Condition Code Onset Dates Condition Statu s Assessment Sinusitis J32.9 Active Problem Weight gain R63.5 Active Problem Migraines G43.909 Active Problem Sinusitis J32.9 Active Assessment Migraines G43.909 Active Assessment Weight gain R63.5 Active Problem Nausea R11.0 Active Problem Environmental allergies Z91.09 Acti ve Medications Medication Code System Code Instructions Start Date End Date Status Dosage Zofran [facility] [address]-67 4 MG Orally 3 times a day Jun 13, 2015 2 tablets Levofloxacin [facility] [address]-50 500 MG Orally Once a day AugSep 01, 2015 1 tablet Treximet [facility] [address]-56 85-500 MG Orally Jun 13, 2015 as directed Phentermine HCl [facility] [address]-32 37.5 MG Orally Once a day Jun 13, 2015 1 tablet Procedures Procedure Coding System Code Date THER/PROPH/DIAG INJ, SC/IM CPT-4 07347 Aug 052015 DEXAMETHASONE 20MG/5 ML (PER 1 MG) CPT-4 J1100 Aug 22, 2015 DEPO MEDROL 40 MG/ML CPT-4 J1030 Aug 22 6 Office Visit, Est Pt., Level 4 CPT-4 32930 J 2015 Vital Signs Date/Time: Aug 22, 2015 Temperature 97.6 F Weight 161.9 lbs Height 69 in BMI 23.91 Index Blood Pressure Diastolic 68 mmHg Blood Pressure Systolic 112 mmHg Cardiac Monitoring Heart Rate 72 bpm Results No Known Results Summary Purpose [employer] Submission
--- OUTSIDE RECORDS SUMMARY | 2020-01-09 20:59 | XMS REPORT ---
Author Author Mary DE ELON Organization [facility] Address [address] [place] [address] Care Team Providers Care Hr Operations Advisor Name Role Phone DE LEONBON Mueller Unavailable PROBLEMS Type Condition ICD9-CM Code HVB19-AV Code Onset Dates Condition S tatus SNOMED Code Problem Migraine without status migr ainosus, not intractable, unspecified migraine type G43.909 Active 26210290 Problem Stress F43.9 Active 81132401 Problem Migraines G43.909 Active 99382796 Problem Acute seasonal allergic rhinitis, unspecified trigger J30.2 Active 026944790 Problem Chronic maxillary sinusitis J32.0 Ac tive 01953136 ALLERGIES Substance Reaction Event Type Date Status Penicillamine Unknown Drug Allergy Oct, Active ENCOUNTERS Encounter Location Date Diagnosis [facility] [address] [address] Jan, Migraine without status migr ainosus, not intractable, unspecified migraine type G43.909 [facility] [address] [address] December, Rash R21 [facility] [address] [address] Oct, Migraines G43.909 ; Chronic maxillary sinusitis J32.0 ; Stress F43.9 ; Screening cholesterol level Z13.220 and Screening for diabetes mellitus Z13.1 [facility] [address] [address] Oct, Migraines G43.909 [facility] [address] [address] Sep, Migraines G43.909 [facility] [address] [address] 08 Jul, 2017 Viral gastroenteritis A08.4 and Acute seasonal allergic rhinitis, unspecified trigger J30.2 [place] [address] [address] Mar, Migraines G43.909 [place] [address] [address] Jan, [place] [address] [address] Jan, Migraines G43.909 [place] [address] [address] Oct, Migraines G43.909 and Enviro nmental allergies Z91.09 [place] [address] [address] 17 Sep, 2016 Wellness examination Z00.00 [place] [address] [address] 14 Sep, 2016 Lumbago with sciatica, left side M54.42 ; Other chronic pain G89.29 and Chronic maxillary sinusitis J32.0 [place] [address] [address] Jul, Migraines G43.909 ; Environm ental allergies Z91.09 ; Weight gain R63.5 and Wellness examination Z00.00 [place] [address] [address] 27 May, 2016 Environmental allergies Z91. 09 [place] [address] [address] May, [place] [address] [address] Mar, Environmental allergies Z91. 09 ; Migraines G43.909 and Weight gain R63.5 [facility] [address] [place] [id number] [place] [phone] Mar, Other headache syndrome G44. 89 [facility] [address] [facility] [id number] [address] [place] [phone] Jan, Migraine syndrome G43.909 [facility] [address] [facility] [id number] [address] [place] [address] Jan, Migraines G43.909 ; Environm ental allergies Z91.09 and Weight gain R63.5 [facility] [address] [facility] [id number] [address] [place] [phone] Jan, [facility] [address] [facility] [id number] [address] [place] [address] December, Migraines G43.909 [facility] [address] [facility] [id number] [address] [place] [address] Nov, Migraines G43.909 [facility] [address] [facility] [id number] [address] [place] [address] Aug, Migraines G43.909 ; Weight g ain R63.5 and Sinusitis J32.9 [facility] [address] [facility] [id number] [address] [place] [phone] Jun, [facility] [address] [facility] [id number] [address] [place] [phone] Jun, Weight gain R63.5 ; Migraine s G43.909 ; Nausea R11.0 and Environmental allergies Z91.09 [facility] [address] [facility] [id number] [address] [place] [phone] May, [facility] [address] [facility] [id number] [address] [place] [phone] May, [facility] [address] [facility] [id number] [address] [place] [phone] 07 Jun, 2014 [facility] [address] [place] [id number] [address] [place] [phone] Jun, [facility] [address] [facility] [id number] [address] [place] [phone] Nov, [facility] [address] [facility] [id number] [address] [place] [phone] Nov, [facility] [address] [facility] [id number] [address] [place] [phone] May, [facility] [address] [facility] [id number] [address] [place] [phone] May, [facility] [address] [facility] [id number] [address] [place] [phone] Oct, IMMUNIZATIONS No Known Immunizations SOCIAL HISTORY Never Assessed REASON FOR VISIT Chronic Migraines. WILFRID Stoddard, [facility] [place] Loss, questioning phenterami ne PLAN OF CARE Activity Details Follow Up prn, 3 Months Reason: VITAL SIGNS Height 69 in 2017-11-01 Weight 157 lbs 2017-11-01 Temperature 98.1 degrees Fahrenheit 2017-11-01 Heart Rate 81 bpm 2017-11-01 Respiratory Rate 22 2017-11-01 BMI 23.18 kg/m2 2017-11-01 Blood pressure systolic 128 mmHg 2017-11-01 Blood pressure diastolic 86 mmHg 2017-11-01 MEDICATIONS Medication Instructions Dosage Frequency Start Date End Date Duration S tatus ZyrTEC 10 mg Orally Once a day 1 tablet 24h 26 Apr, 2018 90 days Active Zofran ODT 4 MG Orally every 8 hrs 1 tablet on the tongue and al low to dissolve 8h Jul, 5 days Active Treximet 85-500 MG Orally Once a day TAKE ONE TABLET BY M OUTH ONCE DAILY NEEDED 24h 18 Active RESULTS No Results PROCEDURES No Known procedures INSTRUCTIONS MEDICATIONS ADMINISTERED No Known Medications MEDICAL (GENERAL) HISTORY Type Description Date Medical History Sinusitis Medical History Migraines Surgical History Surgical History breast augmentation 2009 Surgical History hip surgery as child Hospitalization History Childbirth
--- OUTSIDE RECORDS SUMMARY | 2020-01-09 20:59 | XMS REPORT ---
Author Author Mary CESAR Organization [facility] Address [address] [place] [address] Care Team Providers Care Financial Services Sales Representative Name Role Phone SIGRID CESAR Unavailable PROBLEMS Type Condition ICD9-CM Code ILP01-XX Code Onset Dates Condition S tatus SNOMED Code Problem Environmental allergies Z91.09 Active 728795504 Problem Migraines G43.909 Active 56864766 Problem Nausea R11.0 Active 906456507 Problem Lumbago with sciatica, left side M54.42 Active 388805686 Problem Other chronic pain G89.29 Active 8 3217460 Problem Sinusitis J32.9 Active 54351275 Problem Weight gain R63.5 Active 4333789 Problem Chronic maxillary sinusitis J32.0 Ac tive 43940593 Problem Wellness examination Z00.00 Active 405201502 ALLERGIES Unknown Allergies SOCIAL HISTORY No smoking Hx information available PLAN OF CARE VITAL SIGNS MEDICATIONS Unknown Medications RESULTS No Results PROCEDURES Procedure Date Ordered Related Diagnosis Body Site DEPO MEDROL 40 MG/ML May 31, 2016 THER/PROPH/DIAG INJ, SC/IM May 31, 2016 DEXAMETHASONE 20MG/5 ML (PER 1 MG) May 31, 2016 IMMUNIZATIONS Vaccine Route Administration Date Status DEXAMETHASONE 20MG/5 ML (PER 1 MG) IM Intramuscular May 31, 2016 Administered DEPO MEDROL 40 MG/ML IM Intramuscular May 31, 2016 Administer ed
--- NOTE | 2020-01-09 21:06 | ED Lower Extremity ---
General Stated Complaint: R FOOT PAIN Source: patient Exam Limitations: no limitations History of Present Illness Date Seen by Provider: Jan 09, 2020 Time Seen by Provider: 21:01 Initial Comments ER with bilateral foot pain. She tripped and fell earlier today. She now has left great toe pain and right foot pain. Onset: just prior to arrival Severity: moderate Pain/Injury Location: bilateral foot Method of Injury: fell Modifying Factors: Worse With Movement Allergies and Home Medications Patient Home Medication List Home Medication List Reviewed: Yes Review of Systems Constitutional: see HPI EENTM: see HPI Respiratory: no symptoms reported Cardiovascular: no symptoms reported Genitourinary: no symptoms reported Musculoskeletal: see HPI Skin: no symptoms reported Psychiatric/Neurological: No Symptoms Reported Past Nyoljhk-Flgqph-Obsokb Hx Patient Social History Recent Foreign Travel: No Contact w/Someone Who Travel: No Physical Exam Vital Signs Capillary Refill : Height, Weight, BMI Height: '" Weight: lbs. oz. kg; BMI Method: General Appearance: WD/WN, no apparent distress HEENT: PERRL/EOMI, normal ENT inspection Neck: non-tender, full range of motion Respiratory: no respiratory distress Hips: bilateral hip non-tender, bilateral hip normal inspection, bilateral hip normal range of motion Legs: bilateral leg non-tender, bilateral leg normal inspection, bilateral leg normal range of motion Knees: bilateral knee non-tender, bilateral knee normal inspection, bilateral knee normal range of motion Ankles: right ankle pain, right ankle soft tissue tenderness, right ankle swelling Feet: bilateral foot pain Neurologic/Psychiatric: alert, normal mood/affect Skin: normal color, warm/dry Left all pain with range of motion. The right foot has some ecchymosis dorsally and laterally. Progress/Results/Core Measures Results/Orders My Orders Orders - HARSHAL FISHMAN APRN Foot, Bilateral, 3 View (01/09/20 21:00) Ankle, Right, 3 Views (01/09/20 21:00) Departure Impression Primary Impression: Sprain and strain of ankle Disposition: 01 HOME, SELF-CARE Condition: Stable Departure-Patient Inst. Decision time for Depature: 21:21 Referrals: [facility] (PCP/Family) Primary Care Physician Patient Instructions: Ankle Sprain (DC) Add. Discharge Instructions: 1. Return to ER for any concerns 2. Elevate the foot and ankle as much as possible For the next 2-3 days. Crutches as needed when walking. Ibuprofen for pain control once the stronger pain medication runs out. HARSHAL FISHMAN APRN Jan 09, 2020 21:06
--- NOTE | 2020-01-09 21:21 | Diagnostic Imaging Report ---
INDICATION: Fall, right ankle pain. EXAMINATION: Three views of the right ankle. FINDINGS: No fracture, dislocation or other acute bony abnormality. There is swelling laterally. IMPRESSION: Swelling. No fracture is seen. Dictated by: Dictated on workstation # [id number]
--- NOTE | 2020-01-09 21:22 | Diagnostic Imaging Report ---
INDICATION: Fall, bilateral foot pain. EXAMINATION: Three views of each foot were obtained. FINDINGS: No fracture, dislocation or other acute bony abnormality. There are degenerative changes at the metatarsophalangeal joint of the 1st digit of each foot, right worse than the left. IMPRESSION: There are degenerative changes present with no acute abnormality seen. Dictated by: Dictated on workstation # [id number]
[2020-01-09] MEDS ORDERED: RX-HYDROCODONE/APAP 5/325 MG #4 TAB PK PO PRN (21:30)
[2020-01-09 21:34] VITALS: BP 121/87
== END 2020-01-09 22:09 | disposition home or self-care (01) ==
LOC: EDUNIT# 20:52 → ER 20:54
DX: S93.401A Sprain of unspecified ligament of right ankle, initial encounter (principal); S96.911A Strain of unspecified muscle and tendon at ankle and foot level, right foot, initial encounter; W01.0XXA Fall on same level from slipping, tripping and stumbling without subsequent striking against object, initial encounter
CPT/HCPCS: 73610

== ENCOUNTER → 2020-07-27 | Outpatient (CLI) | payer OTHER ==
--- NOTE | 2020-07-27 17:12 | Diagnostic Imaging Report ---
CLINICAL INDICATION: Patient with chronic sinusitis and migraines, mostly left side for years. Patient has swelling noted around left eye. EXAM: Axial CT scan of the maxillofacial structures without IV contrast . Coronal and sagittal reformations were performed. Auto Exposure Controls were utilized during the CT exam to meet ALARA standards for radiation dose reduction. COMPARISON: CT scan of the sinuses dated 04/24/2019. FINDINGS: PARANASAL SINUSES: FRONTAL: Unremarkable. ETHMOID: Unremarkable. MAXILLARY: There is minimal mucosal thickening on the floor of both maxillary sinuses, which is new involving the right maxillary sinus and stable in the left maxillary sinus. There is resolution of previously seen mucous retention cyst involving the posterior aspect of the left maxillary sinus. SPHENOID: Unremarkable. OTHER PARANASAL SINUS FINDINGS: None. NASAL SEPTUM: There is roughly 4 mm of rightward nasal septal deviation. VISUALIZED TEMPORAL BONE STRUCTURES: Unremarkable. BONY STRUCTURES: Unremarkable. EXTRACRANIAL SOFT TISSUE/ ORBITS: Unremarkable. IMPRESSION: 1: There is minimal bilateral maxillary sinus disease, as described above. 2: There is mild rightward nasal septal deviation. Dictated by: Dictated on workstation # [id number]
== END ==
LOC: RAD 15:45
PROVIDERS: ATTEND Otolaryngology Otolaryngology/Facial Plastic Surgery
DX: J32.9 Chronic sinusitis, unspecified (principal); J34.2 Deviated nasal septum
CPT/HCPCS: 70486

== ENCOUNTER 2020-09-07 05:42 | Outpatient (RCR) | payer OTHER ==
[~2020-09-07] VITALS: Ht 172.7 cm; Wt 76.4 kg
== END 2020-09-07 13:58 | disposition home or self-care (01) ==
LOC: PREOP 05:42
PROVIDERS: ATTEND Otolaryngology Otolaryngology/Facial Plastic Surgery
DX: Z01.812 Encounter for preprocedural laboratory examination (principal); J34.2 Deviated nasal septum; J32.4 Chronic pansinusitis; J34.3 Hypertrophy of nasal turbinates; Z20.822 Contact with and (suspected) exposure to COVID-19
CPT/HCPCS: 87635

== ENCOUNTER 2020-09-09 06:08 | Day surgery (SDC) | payer OTHER ==
[2020-09-09] VITALS (11 sets, daily range): BP systolic 112–146; BP diastolic 71–95
[~2020-09-09] VITALS: Ht 172.7 cm; Wt 76.4 kg
[2020-09-09] MEDS ORDERED: HYDROCORTISONE 100 MG/2 ML (Solu-CORTEF) VIAL IV ONE (06:30)
[2020-09-09] MEDS ORDERED: LEVOFLOXACIN 500 MG/100 ML IV 100 ML IV ONE (06:30)
[2020-09-09] MEDS ORDERED: MIDAZOLAM 2 MG/2 ML (VERSED) VIAL ONE (06:37)
[2020-09-09] MEDS ORDERED: fentaNYL INJECTION 100 MCG/2 ML AMP ONE (06:37)
[2020-09-09] MEDS ORDERED: BSS 15 ML ONE (06:41)
[2020-09-09] MEDS ORDERED: PHENYLEPHRINE 0.5% NASAL SPR (NEO-SYNEPHRINE) REG ONE (06:41)
[2020-09-09] MEDS ORDERED: LIDOCAINE/EPI 1%-1:100,000 (XYLOCAINE) 50 ML ONE (06:41)
[2020-09-09] MEDS ORDERED: COCAINE HCL 4% 2 ML SYR ONE (06:41)
[2020-09-09] MEDS ORDERED: ONDANSETRON 4 MG/2 ML (SDV) Z0FRAN ONE (06:44)
[2020-09-09] MEDS ORDERED: proPOfol 200 MG/20 ML (DIPRIVAN) VIAL IV ONE (06:44)
[2020-09-09] MEDS ORDERED: ROCURONIUM 10 MG/ML 5 ML SYRINGE IV ONE (06:44)
[2020-09-09] MEDS ORDERED: LIDOCAINE PF 2% 5 ML (XYLOCAINE) VIAL ONE (06:44)
[2020-09-09] MEDS ORDERED: SEVOFLURANE (ULTANE) 15 ML INHAL SOLN ONE ×4 (06:45→08:29)
[2020-09-09] MEDS ORDERED: NEOSTIGMINE 3 MG/3 ML VIAL ONE (07:00)
[2020-09-09] MEDS ORDERED: GLYCOPYRROLATE 0.2 MG/ML (ROBINUL) 2 ML VIAL ONE (07:00)
[2020-09-09] MEDS: LACTATED RINGERS 1,000 ML IV PRN ×2 (07:09→07:51)
--- NOTE | 2020-09-09 07:09 | Progress Note-Pre Operative ---
Pre-Operative Progress Note H&P Reviewed The H&P was reviewed, patient examined and no changes noted. Date Seen by Provider: Sep 09, 2020 Time Seen by Provider: 06:30 Date H&P Reviewed: Sep 09, 2020 Time H&P Reviewed: 06:30 Pre-Operative Diagnosis: Bilat Chronic/REcurrent Sinusitis, Dviated septum, Bilat Hyper of Inf turbs RAFAELA ARELLANO MD Sep 09, 2020 07:09
[2020-09-09 07:16] LABS: BASOPHILS % (AUTO) 0 % (0-10); EOSINOPHILS % (AUTO) 0 % (0-10); HEMATOCRIT 37 % (35-52); LYMPHOCYTES # (AUTO) 1.1 10^3/uL (1.0-4.0); LYMPHOCYTES % (AUTO) 20 % (12-44); MEAN CORPUSCULAR HEMOGLOBIN 34 pg (25-34); MEAN CORPUSCULAR HGB CONC 35 g/dL (32-36); MEAN CORPUSCULAR VOLUME 95 fL (80-99); MEAN PLATELET VOLUME 10.5 fL (9.0-12.2); MONOCYTES # (AUTO) 0.3 10^3/uL (0.0-1.0); MONOCYTES % (AUTO) 6 % (0-12); NEUTROPHILS # (AUTO) 4.1 10^3/uL (1.8-7.8); NEUTROPHILS % (AUTO) 73 % (42-75); PLATELET COUNT 234 10^3/uL (130-400); WHITE BLOOD COUNT 5.6 10^3/uL (4.3-11.0)
[2020-09-09 07:31] LABS: CHLORIDE 108 MMOL/L (98-107); POTASSIUM 3.8 MMOL/L (3.6-5.0); SODIUM 141 MMOL/L (135-145)
[2020-09-09 07:33] LABS: CALCIUM 8.9 MG/DL (8.5-10.1); GLUCOSE 99 MG/DL (70-105)
[2020-09-09 07:34] LABS: CARBON DIOXIDE 23 MMOL/L (21-32)
[2020-09-09 07:37] LABS: CREATININE SERUM 0.74 MG/DL (0.60-1.30); GFR ESTIMATED > 60
[2020-09-09] MEDS ORDERED: SUMA1TAB12 PO (07:37)
[2020-09-09] MEDS ORDERED: ONDN4T PO (07:37)
[2020-09-09 07:38] LABS: BUN/CREATININE RATIO 18
--- NOTE | 2020-09-09 08:40 | Progress Note-Post Operative ---
Post-Operative Progess Note Surgeon (s)/6Th Grade Teacher (s) Surgeon RAFAELA ARELLANO MD 6Th Grade Teacher n/a Pre-Operative Diagnosis Bilat Chronic/REcurrent Sinusitis, Dviated septum, Bilat Hyper of Inf turbs Post-Operative Diagnosis same Post-Op Procedure Note Date of Procedure: Sep 09, 2020 Name of Procedure Performed: Bilat ESs, Nasal Septoplasty, Bilat REd of Inf Turbs Description & Findings Description and Findings: n/a Anesthesia Type get Estimated Blood Loss minimal Packing none. Specimen(s) collected/removed bilat sinus diseae, nasal septum RAFAELA ARELLANO MD Sep 09, 2020 08:40
[2020-09-09] MEDS ORDERED: ACETAMINOPHEN 325 MG TABLET PO PRN (08:45)
[2020-09-09] MEDS ORDERED: predniSONE 20 MG TAB PO ONE (08:45)
[2020-09-09] MEDS ORDERED: PROMETHAZINE INJ 25 MG/ML (PHENERGAN) AMP IVP PRN (08:45)
[2020-09-09] MEDS ORDERED: D5 1/2 NS W/KCL 20 MEQ/L 1,000 ML IV SCH (08:45)
[2020-09-09] MEDS ORDERED: HYDROcodone/APAP 5 MG/325 MG (LORTAB) TAB PO PRN (08:45)
[2020-09-09] MEDS ORDERED: ONDANSETRON 4 MG/2 ML (SDV) Z0FRAN IVP PRN (09:00)
[2020-09-09] MEDS ORDERED: MEPERIDINE (DEMEROL) INJ 50 MG/ML IVP ONE (09:00)
[2020-09-09] MEDS ORDERED: HYDROmorphone 2 MG/ML VIAL (DILAUDID) IV ONE (09:00)
[2020-09-09] MEDS ORDERED: morphine INJ 10 MG/ML 1ML (SYR OR VIAL) IVP ONE (09:00)
--- NOTE | 2020-09-09 09:15 | Anesthesia-General Post-Op ---
General Patient Condition Mental Status/LOC: Same as Preop Cardiovascular: Satisfactory Nausea/Vomiting: Absent Respiratory: Satisfactory Pain: Controlled Complications: Absent Post Op Complications Complications None Follow Up Care/Instructions Patient Instructions None needed. Anesthesia/Patient Condition Patient Condition Patient is doing well, no complaints, stable vital signs, no apparent adverse anesthesia problems. No complications reported per nursing. CHERYL CARLOS CRNA Sep 09, 2020 09:15
[2020-09-09] MEDS ORDERED: PRD20T PO (10:42)
[2020-09-09] MEDS ORDERED: ACHD5005 PO (10:42)
[2020-09-09] MEDS ORDERED: LEVO500T80 PO (10:42)
== END 2020-09-09 12:25 | disposition home or self-care (01) ==
LOC: SDC 06:08
PROVIDERS: ATTEND Otolaryngology Otolaryngology/Facial Plastic Surgery
DX: J32.9 Chronic sinusitis, unspecified (principal); J34.2 Deviated nasal septum; J34.3 Hypertrophy of nasal turbinates; R09.81 Nasal congestion; J34.89 Other specified disorders of nose and nasal sinuses; G43.909 Migraine, unspecified, not intractable, without status migrainosus; Z79.899 Other long term (current) drug therapy; Z88.0 Allergy status to penicillin; Z91.048 Other nonmedicinal substance allergy status
CPT/HCPCS: 36415; 80048; 84703; 85025; 87081; 88305; 93005